=== PATIENT | female | born 1955 | race Caucasian/White ===

== ENCOUNTER → 2016-06-10 | Outpatient (CLI) | payer OTHER ==
[2016-06-10 16:18] LABS: MEAN CORPUSCULAR HGB CONC 33.9 g/dl (32.0-36.5); MEAN CORPUSCULAR VOLUME 100.3 fl (80.0-96.0); RED CELL DISTRIBUTION WIDTH 12.7 % (11.5-14.5); WHITE BLOOD COUNT 8.4 K/mm3 (4.0-10.0)
[2016-06-10 16:54] LABS: ALBUMIN 3.9 GM/DL (3.2-5.2); ALBUMIN/GLOBULIN RATIO 1.34 (1.00-1.93); BILIRUBIN,TOTAL 0.5 MG/DL (0.2-1.0); CALCIUM LEVEL 9.1 MG/DL (8.8-10.2); CREATININE FOR GFR 1.06 MG/DL (0.55-1.02); GLOMERULAR FILTRATION RATE 56.1 (>45); POTASSIUM SERUM 4.3 MEQ/L (3.5-5.1); TOTAL PROTEIN 6.8 GM/DL (6.4-8.2)
== END ==
LOC: M LAB 14:41
PROVIDERS: ATTEND Nurse Practitioner Family
DX: E78.5 Hyperlipidemia, unspecified (principal)

== ENCOUNTER → 2016-11-17 | Outpatient (CLI) | payer MEDICAID ==
[2016-11-17 10:18] LABS: MEAN CORPUSCULAR HEMOGLOBIN 32.9 pg (27.0-33.0); MEAN CORPUSCULAR HGB CONC 34.1 g/dl (32.0-36.5); MEAN CORPUSCULAR VOLUME 96.3 fl (80.0-96.0); RED CELL DISTRIBUTION WIDTH 12.7 % (11.5-14.5); WHITE BLOOD COUNT 6.4 K/mm3 (4.0-10.0)
[2016-11-17 10:49] LABS: ALBUMIN 3.9 GM/DL (3.2-5.2); ALBUMIN/GLOBULIN RATIO 1.34 (1.00-1.93); BILIRUBIN,TOTAL 0.7 MG/DL (0.2-1.0); FREE T4 1.24 NG/DL (0.76-1.46); GLOMERULAR FILTRATION RATE 59.8 (>45); TOTAL PROTEIN 6.8 GM/DL (6.4-8.2)
[2016-11-17 11:00] LABS: FOLATE 8.1 NG/ML (>5.4)
== END ==
LOC: M LAB 09:28
PROVIDERS: ATTEND Nurse Practitioner Family
DX: I10 Essential (primary) hypertension (principal)

== ENCOUNTER → 2017-07-01 | Outpatient (CLI) | payer OTHER ==
[2017-07-01 14:12] LABS: ESTIMATED AVERAGE GLUCOSE 105 MG/DL (60-110); HEMOGLOBIN A1c 5.3 %
[2017-07-01 14:19] LABS: ANION GAP 5 MEQ/L (8-16); BLOOD UREA NITROGEN 23 MG/DL (7-18); CALCIUM LEVEL 9.4 MG/DL (8.8-10.2); CARBON DIOXIDE LEVEL 29 MEQ/L (21-32); CHLORIDE LEVEL 108 MEQ/L (98-107); CHOLESTEROL LEVEL 164 MG/DL (<200); CHOLESTEROL RISK RATIO 2.447 (<5); CREATININE FOR GFR 1.08 MG/DL (0.55-1.30); GLOMERULAR FILTRATION RATE 54.7 (>45); GLUCOSE, FASTING 78 MG/DL (70-100); HDL CHOLESTEROL 67 MG/DL (>40); NON-HDL-C 97 MG/DL; POTASSIUM SERUM 5.1 MEQ/L (3.5-5.1); SODIUM LEVEL 142 MEQ/L (136-145); TRIGLYCERIDES LEVEL 60 MG/DL (<150)
[2017-07-01 14:27] LABS: MALB URINE SIEMENS 13.5 MG/L; MAU/CREAT RATIO 10.6 MCG/MG (0.0-30.0)
== END ==
LOC: M LAB 13:20
DX: Z13.1 Encounter for screening for diabetes mellitus (principal); I10 Essential (primary) hypertension
CPT/HCPCS: 83036

== ENCOUNTER 2017-07-27 12:03 | Day surgery (SDC) | payer OTHER ==
[2017-07-27] MEDS: NS 1,000 ML IV (13:41)
[2017-07-27] MEDS ORDERED: PROPOFOL 200 MG/20 ML VIAL As Ordered (14:45)
[2017-07-27] MEDS ORDERED: LIDOCAINE 2% INJ 100 MG/5 ML SDV (FOR ANES.) As Ordered (14:45)
== END 2017-07-27 14:55 | disposition home or self-care (01) ==
LOC: M OPP 12:03
DX: Z12.11 Encounter for screening for malignant neoplasm of colon (principal); K64.0 First degree hemorrhoids; D12.2 Benign neoplasm of ascending colon; K57.30 Diverticulosis of large intestine without perforation or abscess without bleeding; I10 Essential (primary) hypertension; E78.00 Pure hypercholesterolemia, unspecified; J44.9 Chronic obstructive pulmonary disease, unspecified; F41.9 Anxiety disorder, unspecified; F32.9 Major depressive disorder, single episode, unspecified; Z79.82 Long term (current) use of aspirin; Z79.899 Other long term (current) drug therapy; Z87.891 Personal history of nicotine dependence; Z78.0 Asymptomatic menopausal state; Z88.0 Allergy status to penicillin; Z88.8 Allergy status to other drugs, medicaments and biological substances
CPT/HCPCS: 45380

== ENCOUNTER 2017-07-31 01:43 | Emergency (ER) | payer OTHER ==
[2017-07-31 02:34] LABS: BASO % 0.2 % (0.0-1.0); EOS # 0.1 10^3/uL (0.0-0.50); EOS % 0.5 % (0.0-3.0); HEMATOCRIT 40.8 % (36.0-47.0); HEMOGLOBIN 13.7 g/dl (12.0-15.5); IMMATURE GRANULOCYTE % 0.4 % (0-3.0); LYMPH # 1.4 10^3/uL (1.5-4.5); LYMPH % 8.1 % (24.0-44.0); MEAN CORPUSCULAR HEMOGLOBIN 32.3 pg (27.0-33.0); MEAN CORPUSCULAR HGB CONC 33.6 g/dl (32.0-36.5); MEAN CORPUSCULAR VOLUME 96.2 fl (80.0-96.0); MONO # 0.7 10^3/uL (0.0-0.8); MONO % 4.2 % (0.0-5.0); NEUTROPHILS # 14.7 10^3/uL (1.8-7.7); NEUTROPHILS % 86.6 % (36.0-66.0); PLATELET COUNT, AUTOMATED 185 10^3/uL (150-450); RED BLOOD COUNT 4.24 10^6/uL (4.00-5.40); RED CELL DISTRIBUTION WIDTH 12.9 % (11.5-14.5)
[2017-07-31 02:44] LABS: INR 0.98; PROTHROMBIN TIME 13.1 SECONDS (12.4-14.5)
[2017-07-31 02:45] LABS: PARTIAL THROMBOPLASTIN TIME 28.8 SECONDS (26.8-37.9)
[2017-07-31 02:57] LABS: ANION GAP 6 MEQ/L (8-16); BLOOD UREA NITROGEN 21 MG/DL (7-18); CALCIUM LEVEL 8.3 MG/DL (8.8-10.2); CARBON DIOXIDE LEVEL 26 MEQ/L (21-32); CHLORIDE LEVEL 112 MEQ/L (98-107); CPK CREATINE PHOSPHOKINASE 38 U/L (26-192); CREATININE FOR GFR 0.89 MG/DL (0.55-1.30); GLOMERULAR FILTRATION RATE > 60.0 (>45); GLUCOSE, FASTING 102 MG/DL (70-100); POTASSIUM SERUM 3.8 MEQ/L (3.5-5.1); SODIUM LEVEL 144 MEQ/L (136-145); TROPONIN I < 0.02 NG/ML (< 0.10)
[2017-07-31 02:58] LABS: CK-MB VALUE MASS < 1.0 NG/ML (<3.6); MB/CK RELATIVE INDEX 2.63 (< OR =4)
[2017-07-31] MEDS ORDERED: ISOVUE-370 76% 100ML VIAL (Q9967) As Ordered (03:03)
[2017-07-31 03:15] LABS: ALBUMIN 3.5 GM/DL (3.2-5.2); ALBUMIN/GLOBULIN RATIO 1.25 (1.00-1.93); ALKALINE PHOSPHATASE 74 U/L (45-117); ALT/SGPT 26 U/L (12-78); AST/SGOT 29 U/L (7-37); BILIRUBIN,DIRECT 0.1 MG/DL (0.0-0.2); BILIRUBIN,TOTAL 0.4 MG/DL (0.2-1.0); LIPASE 134 U/L (73-393); TOTAL PROTEIN 6.3 GM/DL (6.4-8.2)
[2017-07-31] MEDS: NS 1,000 ML IV (03:45)
[2017-07-31] MEDS: MORPHINE 4 MG/ML 1ML VIAL/SYRINGE (J2270) IV (03:45)
[2017-07-31 03:54] LABS: APPEARANCE, URINE CLEAR (CLEAR); BACTERIA, URINE AUTO NEGATIVE (NEGATIVE); BILIRUBIN, URINE AUTO NEGATIVE (NEGATIVE); BLOOD, URINE BLOOD 1+ (NEGATIVE); COLOR, URINE YELLOW (YELLOW); GLUCOSE, URINE (UA) AUTO NEGATIVE (NEGATIVE); KETONE, URINE AUTO NEGATIVE (NEGATIVE); LEUKOCYTE ESTERASE, URINE AUTO NEGATIVE (NEGATIVE); NITRITE, URINE AUTO NEGATIVE (NEGATIVE); PROTEIN, URINE AUTO NEGATIVE (NEGATIVE); RBC, URINE AUTO 4 /HPF (0-3); SPECIFIC GRAVITY URINE AUTO 1.017 (1.002-1.035); SQUAMOUS EPITHELIAL CELL UR AU 1 /HPF (0-6); UROBILINOGEN, URINE AUTO 0.2 mg/dL (0.0-2.0); WBC, URINE AUTO 2 /HPF (0-3)
[2017-07-31] MEDS: BACTRIM 160MG/800MG DS TAB PO (04:54)
[2017-07-31] MEDS: metroNIDAZOLE 750 MG in APPROPRIATE DILUENT 1 EA IV (05:27)
== END 2017-07-31 06:33 | disposition home or self-care (01) ==
LOC: M ED 01:43
DX: K57.92 Diverticulitis of intestine, part unspecified, without perforation or abscess without bleeding (principal); I10 Essential (primary) hypertension; E78.5 Hyperlipidemia, unspecified; F33.9 Major depressive disorder, recurrent, unspecified; Z79.51 Long term (current) use of inhaled steroids; Z79.899 Other long term (current) drug therapy; Z79.82 Long term (current) use of aspirin; Z88.0 Allergy status to penicillin; Z88.8 Allergy status to other drugs, medicaments and biological substances; Z88.5 Allergy status to narcotic agent; Z88.1 Allergy status to other antibiotic agents
CPT/HCPCS: J2270

== ENCOUNTER → 2018-01-26 | Outpatient (CLI) | payer OTHER | LOC: M WHC 12:46 | DX: Z82.62 Family history of osteoporosis (principal); M85.9 Disorder of bone density and structure, unspecified | CPT/HCPCS: 77080 ==

== ENCOUNTER → 2018-03-12 | Outpatient (CLI) | payer OTHER | LOC: M RAD 10:04 | DX: Z12.2 Encounter for screening for malignant neoplasm of respiratory organs (principal); Z87.891 Personal history of nicotine dependence; J44.9 Chronic obstructive pulmonary disease, unspecified | CPT/HCPCS: G0297 ==

== ENCOUNTER → 2019-04-19 | Outpatient (CLI) | payer OTHER ==
[~2019-04-19] MED LIST: ARNU1INH3 IN; ASPI81TA26 PO; ATOR1TAB21 PO; BACT800T5 PO; BENI1TAB3 PO; CALC500T61 PO; CARV6.25 PO; CETI10TA PO; ESCI20TA PO; FLAG500T PO; INCR1INH IN; RANI300T PO; TRAM50TA2 PO; VITA100018 PO
== END ==
LOC: M RAD 13:06
PROVIDERS: ATTEND Internal Medicine Pulmonary Disease
DX: Z12.2 Encounter for screening for malignant neoplasm of respiratory organs (principal); Z87.891 Personal history of nicotine dependence

== ENCOUNTER → 2019-07-28 | Outpatient (REF) | payer OTHER | LOC: M LAB REF 16:29 | PROVIDERS: ATTEND Ophthalmology | DX: H02.403 Unspecified ptosis of bilateral eyelids (principal) ==

== ENCOUNTER → 2019-10-27 | Outpatient (REF) | payer MEDICARE, OTHER ==
[2019-10-27 12:13] LABS: ALBUMIN 3.8 GM/DL (3.2-5.2); ALT/SGPT 27 U/L (12-78); BILIRUBIN,TOTAL 0.6 MG/DL (0.2-1.0); BLOOD UREA NITROGEN 16 MG/DL (7-18); CALCIUM LEVEL 8.9 MG/DL (8.8-10.2); CARBON DIOXIDE LEVEL 28 MEQ/L (21-32); CHLORIDE LEVEL 107 MEQ/L (98-107); CHOLESTEROL LEVEL 197 MG/DL (<200); CHOLESTEROL RISK RATIO 2.662 (<5); CREATININE FOR GFR 0.78 MG/DL (0.55-1.30); GLOMERULAR FILTRATION RATE > 60.0 (>45); GLUCOSE, FASTING 77 MG/DL (70-100); HDL CHOLESTEROL 74 MG/DL (>40); LDL CHOLESTEROL 107 MG/DL (<100); NON-HDL-C 123 MG/DL; POTASSIUM SERUM 4.6 MEQ/L (3.5-5.1); SODIUM LEVEL 140 MEQ/L (136-145); TOTAL PROTEIN 7.1 GM/DL (6.4-8.2); TRIGLYCERIDES LEVEL 80 MG/DL (<150)
== END ==
LOC: M PLALAB 10:00
PROVIDERS: ATTEND Family Medicine
DX: M81.0 Age-related osteoporosis without current pathological fracture (principal); E78.2 Mixed hyperlipidemia; E55.9 Vitamin D deficiency, unspecified
CPT/HCPCS: 36415; 80053; 80061; 82306; G0463

== ENCOUNTER 2020-03-08 14:42 | Inpatient (IN) | payer MEDICARE, OTHER ==
[~2020-03-08] VITALS: Ht 154.9 cm; Wt 44.9 kg
[~2020-03-08 14:42] MED LIST changes: -ARNU1INH3 IN; +ARNU1INH3 INH; -INCR1INH IN; +INCR1INH INH
[2020-03-08] MEDS ORDERED: MORPHINE 2 MG/ML 1ML VIAL (J2270) IV PRN (15:15)
[2020-03-08] MEDS ORDERED: MORPHINE 4 MG/ML 1ML VIAL/SYRINGE (J2270) As Ordered ONE (15:17)
[2020-03-08] MEDS ORDERED: ONDANSETRON 4MG/2ML VIAL As Ordered ONE (15:17)
[2020-03-08 15:19] LABS: BASO # 0.1 10^3/uL (0.0-0.2); BASO % 0.7 % (0.0-1.0); EOS # 0.2 10^3/uL (0.0-0.5); EOS % 1.4 % (0.0-3.0); HEMATOCRIT 47.1 % (36.0-47.0); HEMOGLOBIN 15.3 g/dl (12.0-15.5); LYMPH # 2.1 10^3/uL (1.5-5.0); LYMPH % 16.9 % (24.0-44.0); MEAN CORPUSCULAR HEMOGLOBIN 31.5 pg (27.0-33.0); MEAN CORPUSCULAR HGB CONC 32.5 g/dl (32.0-36.5); MEAN CORPUSCULAR VOLUME 97.1 fl (80.0-96.0); MONO # 1.1 10^3/uL (0.0-0.8); MONO % 8.8 % (0.0-5.0); NEUTROPHILS # 8.9 10^3/uL (1.5-8.5); NEUTROPHILS % 71.8 % (36.0-66.0); PLATELET COUNT, AUTOMATED 230 10^3/uL (150-450); RED BLOOD COUNT 4.85 10^6/uL (4.00-5.40); WHITE BLOOD COUNT 12.5 10^3/uL (4.0-10.0)
--- NOTE | 2020-03-08 15:26 | REP ---
INDICATION: abd pain COMPARISON: 03/29/2016 TECHNIQUE: Portable AP view of the chest FINDINGS: The mediastinum and cardiac silhouette are stable and within normal limits for portable technique. The lung hurt demonstrate chronic COPD without acute consolidation, effusion, or pneumothorax. Skeletal structures are intact. IMPRESSION: No acute cardiopulmonary process appreciated. Chronic COPD. <Electronically signed by Julio Arreola > 03/08/20 [id number]
[2020-03-08] MEDS ORDERED: MORPHINE 4 MG/ML 1ML VIAL/SYRINGE (J2270) IV PRN ×3 (15:30→16:00)
[2020-03-08] MEDS ORDERED: NS 1,000 ML IV SCH (15:30)
[2020-03-08] MEDS ORDERED: ISOVUE-370 76% 100ML VIAL As Ordered ONE (15:39)
[2020-03-08 15:47] LABS: ALBUMIN 3.7 GM/DL (3.2-5.2); BILIRUBIN,DIRECT 0.2 MG/DL (0.0-0.2); BILIRUBIN,TOTAL 1.1 MG/DL (0.2-1.0)
--- NOTE | 2020-03-08 16:05 | REP ---
INDICATION: abd pain. COMPARISON: 07/31/2017 TECHNIQUE: Axial contrast-enhanced images from the lung bases to the pubic symphysis using 100 cc Isovue 370 intravenous contrast material. Coronal and sagittal reformations obtained. This CT examination was performed using the following dose reduction techniques: Automated exposure control, adjustment of mA and/or kv according to the patient's size, and the use of iterative reconstruction technique. FINDINGS: Liver demonstrates geographic areas of decreased density along the inferior aspect of the right lobe with normal vessels and no mass effect most compatible with benign transient hepatic attenuation defect (NOLAN). Liver is otherwise unremarkable. Spleen, pancreas, gallbladder, bilateral adrenal glands and kidneys are normal. The enteric system demonstrates mild fecal stasis without obstruction. Scattered colonic and sigmoid diverticula noted. There is mild mucosal thickening involving the proximal through mid sigmoid colon suspicious for infectious/inflammatory colitis. Pelvis demonstrates normal bladder and age-appropriate uterus/adnexa. No ascites. No free air. No intraperitoneal or retroperitoneal adenopathy. Abdominal aorta and vasculature demonstrate atherosclerotic changes without aneurysm or dissection. Musculoskeletal structures are intact and without acute osseous abnormality. Lung bases demonstrate early advanced emphysematous disease. IMPRESSION: 1. Findings suspicious for sigmoid colitis. 2. Further nonacute findings as described above. <Electronically signed by Julio Arreola > 03/08/20 [id number]
--- NOTE | 2020-03-08 16:20 | ECGEPIP ---
[facility] - ED Test Date: 2020-03-08 Pat Name: ANDREW DUMONT Department: Room: - Gender: Female [employer]: DELORES : 1955 Requested By: DEANA SPRINGER Order Number: [id number] Reading MD: Sharon Tapia Measurements Intervals [place] Rate: 107 P: 81 [place]: 128 QRS: 71 QRSD: 72 T: 67 QT: 334 QTc: 446 Interpretive Statements SINUS TACHYCARDIA POSSIBLE RIGHT ATRIAL ENLARGEMENT POSSIBLE LEFT ATRIAL ENLARGEMENT ST DEPRESSION, CONSIDER SUBENDOCARDIAL INJURY, CLINICAL CORRELATION Electronically Signed on 03-08-2020 16:19:42 EST by Sharon Tapia
[2020-03-08] MEDS ORDERED: LORA-436 PO (16:33)
[2020-03-08] MEDS ORDERED: MONT10TA4 PO (16:33)
[2020-03-08] MEDS ORDERED: ATOR40TA75 PO (16:33)
[2020-03-08] MEDS ORDERED: CALC600T61 PO (16:33)
[2020-03-08] MEDS ORDERED: VITMTA PO (16:33)
[2020-03-08] MEDS ORDERED: LOSA50TA88 PO (16:33)
[2020-03-08] MEDS: ONDANSETRON 4MG/2ML VIAL IV PRN (16:47)
[2020-03-08 16:50] LABS: VENOUS BASE EXCESS -2.4 (-2.0-2.0); VENOUS HCO3 24.1 MEQ/L (23.0-27.0); VENOUS O2 SATURATION 61.8 % (60.0-80.0); VENOUS PARTIAL PRESSURE O2 32.9 mmHg (30.0-50.0); VENOUS PH 7.319 UNITS (7.330-7.430); VENOUS STANDARD HCO3 21.6 MEQ/L; VENOUS TOTAL CO2 25.6 MEQ/L (24.0-28.0)
[2020-03-08] MEDS ORDERED: HEPARIN SOD (PORCINE) 5000UNITS/ML 1ML VIAL/SYRINGE SC SCH (17:30)
[2020-03-08] MEDS ORDERED: MOM 30ML SUSPENSION UDC PO PRN (17:30)
[2020-03-08 17:44] LABS: C REACTIVE PROTEIN QUANTITATIV 0.61 MG/DL (0.00-0.30)
[2020-03-08] MEDS ORDERED: DICYCLOMINE 10 MG CAP PO PRN (17:45)
[2020-03-08 17:54] LABS: ERYTHROCYTE SEDIMENTATION RATE 15 mm/hr (0-30)
--- NOTE | 2020-03-08 17:56 | HPEPDOC ---
[facility] Medical History & Physical Date of Admission Mar 08, 2020 Date of Service: Mar 08, 2020 History and Physical Chief complaint: Presented to the ER with complaints of abdominal pain History of present illness: Patient is a 64 year old female with a PMHx of HTN, DLP, COPD (2/2 Former Smoker), Depression, Osteoporosis, Vitamin D deficiency, Hx of Diverticulitis who presented to the emergency room with complaints of abdominal pain. Patient reported that on Thursday morning, she was expressing abdominal pain, reported as a 10/10, occurring for an hour duration, then spontaneously resolving. Patient reported that her Thursday was uneventful. This morning patient had reported nausea and attempted to vomit then began experiencing epigastric pain, reported as a 10 out of 10 pressure/ache. He-like intensity, non-radiating without any aggravating factors. Patient reported that the only thing that has helped his pain medications in the ER. Patient denies any diarrhea or constipation. Her last bowel movement was yesterday. She reported the stool was hard denied any mucus or blood. Denies any urinary discomfort. Patient has not experience any recent fevers, chills. Patient denies any chest pain, shortness of breath or cough. Her last colonoscopy was about [address] Romo and she has never received an EGD. Patient reports that prior to all this, her appetite was fairly normal and denies any significant changes in her weight. Past Medical History: HTN, DLP, COPD (2/2 Former Smoker), Depression, Osteoporosis, Vitamin D deficiency, Hx of Diverticulitis Past Surgical History: Umbilical hernia repair as a child Tubal ligation 1989 Lumbar spinal fusion [address] Romo /2017 Allergies: See below Medications: See below Family History: - Mother with history of multiple medical conditions and now lives in a retirement - Father with history of prostate and lung cancer Social History: - Denies the use of alcohol or illicit drugs; patient quit smoking approximately 7 years ago but was a smoker of 30 years at one PPD - Denies recent travel or sick contacts - Lives alone - Occupation; retired from [employer] Review of Systems: 10 point review of systems complete, all negative otherwise stated in HPI Physical exam: - Vitals: BP [166/74], HR [90], RR [20], Sat [97%RA], Temp [97.7F] - General: Lying in bed, Speaking in full sentences, AAOx3 - HEENT: NC, AT, PERRLA - CVS: RRR, +S1S2 - Lungs: Fair air entry bilaterally, No appreciable wheezing / rales / rhonchi - Abdomen: Soft, Non-distended, tenderness is appreciated at the epigastrium only. No tenderness any other four-quadrant - Extremities: No lower extremity edema, No calf tenderness - Neuro: No focal motor or sensory deficit - Skin: No visible rashes Labs: See below Imaging: CXR 03/08: No acute cardiopulmonary process appreciated. Chronic COPD. CT abdomen / pelvis 03/08: 1. Findings suspicious for sigmoid colitis. 2. Further nonacute findings as described above. EKG: See below Assessment and Plan: Abdominal pain / Epigastric pain - likely 2/2 gastritis, possibly 2/2 biliary etiology, unlikely 2/2 sigmoid colitis - Currently patient is reporting pain in the upper portion of her abdomen - She is reported using ibuprofen regularly for her sinus headaches - Physical reveals severe epigastric tenderness only; no LLQ tenderness is noted at all on exam - Mild leukocytosis; no lactic acidosis - Imaging noted above - Will check H. pylori antigen / serology - Will trend liver enzymes - Will check RUQ ultrasound - Will provide GI cocktail / dicyclomine - Clear liquid diet for now; NPO post-midnight - Will start Protonix / Carafate - Patient has been advised remain off NSASIDs - Consulted GI; discussed case with Dr. Jason; will likely perform EGD tomorrow HTN - BP elevated in the ER; possibly 2/2 pain - c/w Carvedilol and Losartan with holding parameters DLP - c/w Atorvastatin Chronic COPD - Patient reports she is a former smoker - No evidence of exacerbation - Continue with inhaled therapy as ordered Depression - c/w Escitalopram Seasonal allergies - c/w Loratadine Osteoporosis / Vitamin D deficiency - c/w Calcium carbonate Hx of Diverticulitis - Occurred 5 years ago DVT prophylaxis - Will start NOELLE/Sequentials Vital Signs Vital Signs Date Time Temp Pulse Resp B/P (MAP) Pulse Ox O2 Delivery O2 Flow Rate FiO2 03/08/20 16:48 20 99 Room Air 03/08/20 15:33 03/08/20 15:27 90 Laboratory Data Labs 24H Laboratory Tests 2 03/08/20 15:08: Immature Granulocyte % (Auto) 0.4, Neutrophils (%) (Auto) 71.8H, Lymphocytes (%) (Auto) 16.9L, Monocytes (%) (Auto) 8.8H, Eosinophils (%) (Auto) 1.4, Basophils (%) (Auto) 0.7, Neutrophils # (Auto) 8.9H, Lymphocytes # (Auto) 2.1, Monocytes # (Auto) 1.1H, Eosinophils # (Auto) 0.2, Basophils # (Auto) 0.1, Nucleated Red Blood Cells % (auto) 0.0, Erythrocyte Sedimentation Rate 15, Lactic Acid Level 1.7, Total Bilirubin 1.1H, Direct Bilirubin 0.2, Aspartate Amino Transf (AST/SGOT) 37, Alanine Aminotransferase (ALT/SGPT) 34, Alkaline Phosphatase 86, C-Reactive Protein, Quantitative 0.61H, Total Protein 7.0, Albumin 3.7, Albumin/Globulin Ratio 1.1L, Lipase 90 03/08/20 15:09: POC Glucose (Misc Panel) 79, POC Sodium (Misc Panel) 141, POC Potassium (Misc Panel) 3.6, POC Chloride (Misc Panel) 105, POC Total CO2 (Misc Panel) 23.0, POC Blood Urea Nitrogen (Misc Panel 15, POC Ionized Calcium (Misc Panel) 4.7, POC Creatinine (Misc Panel) 0.6, POC Hematocrit (Misc Panel) 48.0 03/08/20 15:12: POC Troponin I (Misc) 0.01 03/08/20 15:24: POC Glucose (Misc Panel) 75, POC Sodium (Misc Panel) 141, POC Potassium (Misc Panel) 3.5, POC Chloride (Misc Panel) 104, POC Total CO2 (Misc Panel) 23.0, POC Blood Urea Nitrogen (Misc Panel 15, POC Ionized Calcium (Misc Panel) 4.7, POC Creatinine (Misc Panel) 0.6, POC Hematocrit (Misc Panel) 51.0 03/08/20 16:37: Urine Color STRAW, Urine Appearance CLEAR, Urine pH 6.0, Urine Specific [place] >1.060H, Urine Protein NEGATIVE, Urine Glucose (UA) NEGATIVE, Urine Ketones 2+H, Urine Blood NEGATIVE, Urine Nitrite NEGATIVE, Urine Bilirubin NEGATIVE, Urine Urobilinogen 0.2, Urine Leukocyte Esterase NEGATIVE, Urine WBC (Auto) 1, Urine RBC (Auto) 1, Urine Hyaline Casts (Auto) 0, Urine Bacteria (Auto) NEGATIVE, Urine Squamous Epithelial Cells 5, Urine Mucus (Auto) SMALL, Urine Sperm (Auto) , Blood Gas Bicarbonate Standard 21.6, Venous Blood pH 7.319L, Venous Blood Partial Pressure CO2 48.0, Venous Blood Partial Pressure O2 32.9, Venous Blood Total Carbon Dioxide 25.6, Venous Blood HCO3 24.1, Venous Blood Oxygen Saturation 61.8, Venous Blood Base Excess -2.4L, Coronavirus (COVID-19)(PCR) NEGATIVE CBC/BMP Laboratory Tests 03/08/20 15:08 Home Medications Scheduled Atorvastatin Calcium (Atorvastatin Calcium) 40 Mg Tablet, 40 MG PO QHS Calcium Carbonate (Calcium) 600 Mg Tablet, 600 MG PO DAILY Carvedilol (Carvedilol) 6.25 Mg Tab, 6.25 MG PO BID Escitalopram Oxalate (Escitalopram Oxalate) 20 Mg Tab, 20 MG PO DAILY Fluticasone Furoate (Arnuity Ellipta) 200 Mcg/Act Inh, 200 MCG INH DAILY Loratadine (Loratadine) 10 Mg Tablet, 10 MG PO DAILY Losartan Potassium (Losartan Potassium) 50 Mg Tablet, 50 MG PO DAILY Montelukast Sodium (Montelukast Sodium) 10 Mg Tablet, 10 MG PO DAILY Multivitamins (Thera M Plus Tablet) 1 Each Tablet, 1 TAB PO DAILY Umeclidinium [place] (Incruse Ellipta) 62.5 Mcg/Inh Inh, 62.5 MCG INH DAILY Allergies Coded Allergies: amoxicillin (Verified Allergy, Intermediate, hives, 03/08/20) ciprofloxacin (Verified Allergy, Intermediate, hives, 03/08/20) clavulanic acid (Verified Allergy, Intermediate, hives, 03/08/20) doxycycline (Verified Allergy, Intermediate, migraine, 03/08/20) pravastatin (Verified Allergy, Unknown, 03/08/20) oxycodone (Verified Adverse Reaction, Mild, MIGRAINE, 03/08/20) bupropion (Verified Adverse Reaction, Unknown, high anxiety, 03/08/20) HEMAL WHITESIDE MD Mar 08, 2020 17:56
[2020-03-08] MEDS ORDERED: GI COCKTAIL 50ML BTL(HYOSCYAMINE/MAALOX/LIDOCAINE VISCOUS)(1:3:1) PO ONE (18:00)
[2020-03-08] MEDS ORDERED: CALCIUM CARBONATE 500 MG CHEW U/D PO PRN (18:00)
[2020-03-08] MEDS: SUCRALFATE 1 GM TAB PO SCH ×2 (19:10→21:15)
[2020-03-08 19:48] VITALS: BP 114/95
[2020-03-08] MEDS ORDERED: ADVAIR HFA 230/21MCG INHALER INH SCH (21:00)
[2020-03-08] MEDS: ATORVASTATIN 20 MG TAB PO SCH (21:15)
[2020-03-08] MEDS: CARVedilol 6.25 MG TAB PO SCH (21:15)
[2020-03-08] MEDS: DOCUSATE SODIUM 100 MG CAP PO SCH (21:15)
[2020-03-08] MEDS: PANTOPRAZOLE 40MG VIAL (C9113 PER 1) IV SCH (21:16)
[2020-03-08] MEDS: LOSARTAN 50MG TABLET PO SCH (21:17)
[2020-03-08] MEDS: ACETAMINOPHEN TAB 650MG DOSE (2X325MG) PO PRN (21:30)
[2020-03-09] MEDS: ONDANSETRON 4MG/2ML VIAL IV PRN ×2 (03:03→08:10)
[2020-03-09 06:03] LABS: BASO # 0.1 10^3/uL (0.0-0.2); EOS # 0.2 10^3/uL (0.0-0.5); EOS % 2.4 % (0.0-3.0); HEMATOCRIT 44.3 % (36.0-47.0); HEMOGLOBIN 14.4 g/dl (12.0-15.5); LYMPH # 1.6 10^3/uL (1.5-5.0); LYMPH % 17.8 % (24.0-44.0); MEAN CORPUSCULAR HEMOGLOBIN 32.3 pg (27.0-33.0); MEAN CORPUSCULAR HGB CONC 32.5 g/dl (32.0-36.5); MEAN CORPUSCULAR VOLUME 99.3 fl (80.0-96.0); MONO # 0.9 10^3/uL (0.0-0.8); MONO % 9.3 % (0.0-5.0); NEUTROPHILS # 6.4 10^3/uL (1.5-8.5); NEUTROPHILS % 69.2 % (36.0-66.0); PLATELET COUNT, AUTOMATED 191 10^3/uL (150-450); RED BLOOD COUNT 4.46 10^6/uL (4.00-5.40); WHITE BLOOD COUNT 9.2 10^3/uL (4.0-10.0)
[2020-03-09 06:28] LABS: ALBUMIN 3.3 GM/DL (3.2-5.2); ALT/SGPT 28 U/L (12-78); BILIRUBIN,DIRECT 0.3 MG/DL (0.0-0.2); BILIRUBIN,TOTAL 0.9 MG/DL (0.2-1.0); BLOOD UREA NITROGEN 14 MG/DL (7-18); CALCIUM LEVEL 8.8 MG/DL (8.8-10.2); CARBON DIOXIDE LEVEL 26 MEQ/L (21-32); CHLORIDE LEVEL 109 MEQ/L (98-107); CREATININE FOR GFR 0.68 MG/DL (0.55-1.30); GLOMERULAR FILTRATION RATE > 60.0 (>45); GLUCOSE, FASTING 77 MG/DL (70-100); MAGNESIUM LEVEL 2.1 MG/DL (1.8-2.4); POTASSIUM SERUM 4.1 MEQ/L (3.5-5.1); SODIUM LEVEL 141 MEQ/L (136-145); TOTAL PROTEIN 6.3 GM/DL (6.4-8.2)
[2020-03-09] MEDS ORDERED: MORPHINE 2 MG/ML 1ML VIAL (J2270) IV ONE ×2 (06:30→13:30)
[2020-03-09 06:32] VITALS: BP 134/67
--- NOTE | 2020-03-09 06:46 | REPVR ---
PROCEDURE INFORMATION: Exam: US Abdomen, Limited; Right Upper Quadrant Exam date and time: 03/08/2020 6:11 AM Age: 64 years old Clinical indication: Abdominal pain; Epigastric; Additional info: Ruq TECHNIQUE: Imaging protocol: US abdomen. Real time ultrasound with image documentation. Limited exam focused on the right upper quadrant. COMPARISON: CT ABD/PEL W/IV CONTRAST ONLY 03/08/2020 3:38 PM FINDINGS: Liver: Normal. No masses. Gallbladder: Normal. No gallstones. There is no gallbladder wall thickening. No sonographic Noe sign. Common bile duct: Normal measuring 0.4 cm. No stones. No dilation. Pancreas: Visualized pancreas is unremarkable. Right kidney: Right kidney is unremarkable measuring 8.9 x 4.6 x 4.5 cm. Intraperitoneal space: No free fluid. IMPRESSION: Negative exam. Electronically signed by: Luna Hays On 03/09/2020 06:46:20 AM
[2020-03-09] MEDS: TIOTROPIUM INHALER/CAPSULE (SPIRIVA) INH SCH (07:17)
[2020-03-09] MEDS: SUCRALFATE 1 GM TAB PO SCH ×2 (07:30→12:00)
[2020-03-09 07:38] LABS: H PYLORI QUALITATIVE IgG NEGATIVE (NEGATIVE)
[2020-03-09] MEDS: PANTOPRAZOLE 40MG VIAL (C9113 PER 1) IV SCH (08:10)
[2020-03-09] MEDS ORDERED: MULTIVITAMINS/MINERALS THERAP 1 TAB PO SCH (09:00)
[2020-03-09] MEDS: CARVedilol 6.25 MG TAB PO SCH ×2 (09:00→20:06)
[2020-03-09] MEDS: DOCUSATE SODIUM 100 MG CAP PO SCH ×2 (09:00→20:05)
--- NOTE | 2020-03-09 09:43 | IPNPDOC ---
Text Note Date of Service The patient was seen on 03/09/20. NOTE Subjective: Patient seen and examined at bedside. Still complains of nausea, vomiting - non- bloody, non-bilious. Objective: General: NAD, lying comfortably in bed HEENT: NC, AT, PERRLA CVS: RRR, +S1S2 Lungs: CTA B/L Abdomen: soft, ND, +BS, some mid-epigastric tenderness Ext: no edema Skin : no visible rashes A/P: 64F with PMHx of HTN, DLP, COPD (2/2 Former Smoker), Depression, Osteoporosis, Vitamin D deficiency, Hx of Diverticulitis who presented to the emergency room with complaints of abdominal pain - reported as a 10/10, occurring for an hour duration, then spontaneously resolving. Patient states she then developed nausea and attempted to vomit then began experiencing epigastric pain, reported as a 10 out of 10 pressure/ache. #Abdominal pain / Epigastric pain - likely 2/2 gastritis, possibly 2/2 biliary etiology, unlikely 2/2 sigmoid colitis - Currently patient is reporting pain in the upper portion of her abdomen - She is reported using ibuprofen regularly for her sinus headaches - leukocytosis resolved - Will check H. pylori antigen / serology - Will check RUQ ultrasound - Will provide GI cocktail / dicyclomine - repeat trops, ecg pending - NPO - Protonix / Carafate - Patient has been advised remain off NSAIDs - Consulted GI; discussed case with Dr. Jason; will likely perform EGD #HTN - BP elevated in the ER; possibly 2/2 pain - c/w Carvedilol and Losartan with holding parameters #DLP - c/w Atorvastatin #COPD - Patient reports she is a former smoker - No evidence of exacerbation - Continue with inhaled therapy as ordered #Depression - c/w Escitalopram #Seasonal allergies - c/w Loratadine #Osteoporosis / Vitamin D deficiency - c/w Calcium carbonate #Hx of Diverticulitis - Occurred 5 years ago #DVT prophylaxis - Will start NOELLE/Sequentials VS,Fishbone, I+O VS, Fishbone, I+O Laboratory Tests 03/08/20 15:08 03/09/20 05:44 Vital Signs Date Time Temp Pulse Resp B/P (MAP) Pulse Ox O2 Delivery O2 Flow Rate FiO2 03/09/20 06:56 16 Room Air 03/09/20 06:32 99.2 65 134/67 (52) 32 I&O- Last 24 Hours up to 6 AM 03/09/20 06:00 Intake Total 160 ml Output Total 100 ml Balance 60 ml YAAKOV YANEZ MD Mar 09, 2020 09:42
[2020-03-09] MEDS ORDERED: LIDOCAINE 2% 100MG/5ML SDV (FOR ANES.) As Ordered ONE (10:03)
[2020-03-09] MEDS ORDERED: propofoL 200 MG/20 ML VIAL As Ordered ONE (10:03)
[2020-03-09 12:36] LABS: CK-MB VALUE MASS 2.7 NG/ML (<3.6); CPK CREATINE PHOSPHOKINASE 38 U/L (26-192); MB/CK RELATIVE INDEX 7.11 (< OR =4); TROPONIN I < 0.02 NG/ML (< 0.10)
[2020-03-09] MEDS ORDERED: MORPHINE 2 MG/ML 1ML VIAL (J2270) As Ordered ONE (13:03)
--- NOTE | 2020-03-09 15:40 | ROOR ---
Patient Name: Trupti Washington Procedure Date: 03/09/2020 3:12 PM Date of : 1955 Age: 64 Room: Main OR Gender: Female Note Status: Finalized Procedure: Upper GI endoscopy Indications: Epigastric abdominal pain Providers: John JASON MD Referring MD: 2. Inpatient 2. Inpatient Requesting Provider: Medicines: Monitored Anesthesia Care Complications: No immediate complications. Procedure: Pre-Anesthesia Assessment: - The heart rate, respiratory rate, oxygen saturations, blood pressure, adequacy of pulmonary ventilation, and response to care were monitored throughout the procedure. The Endoscope was introduced through the mouth, and advanced to the second part of duodenum. The upper GI endoscopy was accomplished without difficulty. The patient tolerated the procedure well. Findings: A medium amount of food (residue) was found in the gastric body. Removal of food was accomplished. A widely patent Schatzki ring was found at the gastroesophageal junction. The entire examined stomach was normal. The examined duodenum was normal. Suspect gastroparesis due to patient symptoms and retained gastric contents. Impression: - Widely patent Schatzki ring, otherwise normal esophagus. - A medium amount of food (residue) in the stomach, otherwise normal stomach. - Normal examined duodenum. Recommendation: - Gastroparesis diet: - Eat smaller, more frequent meals throughout the day. - Low fat diet. - Liquid/soft foods are tolerated better than solid foods. - Low fiber/well cooked vegetables are tolerated better than high fiber/fibrous foods/raw vegetables. - Avoid medications that inhibit gastric/intestinal motility such as narcotic medications. - limit/avoid narcotic medications. - r/o hypothyroidism, r/o DM as cause for gastroparesis. - CT shows fecal stasis. rec laxative regimen. - Outpatient follow up with Dr Romo. Procedure Code(s): --- Professional --- 02657, Esophagogastroduodenoscopy, flexible, transoral; with removal of foreign body(s) Diagnosis Code(s): --- Professional --- T18.2XXA, Foreign body in stomach, initial encounter K22.2, Esophageal obstruction K31.84, Gastroparesis R10.13, Epigastric pain CPT copyright 2019 [employer]. All rights reserved. The codes documented in this report are preliminary and upon windows mobile developer review may be revised to meet current compliance requirements. John Jason MD John JASON MD 03/09/2020 3:40:29 PM Electronically signed by John JASON MD Number of Addenda: 0 Note Initiated On: 03/09/2020 3:12 PM Estimated Blood Loss: Estimated blood loss: none.
[2020-03-09] MEDS ORDERED: LR 1,000 ML IV SCH (16:00)
[2020-03-09] MEDS ORDERED: ONDANSETRON 4MG/2ML VIAL IV PRN (16:00)
[2020-03-09 16:27] VITALS: BP 134/75
[2020-03-09] MEDS: LORATADINE 10 MG TAB PO SCH (17:12)
[2020-03-09] MEDS: ESCITALOPRAM OXALATE 10 MG TAB (LEXAPRO) PO SCH (17:13)
[2020-03-09] MEDS: MONTELUKAST 10 MG TAB PO SCH (17:13)
[2020-03-09] MEDS: LOSARTAN 50MG TABLET PO SCH (17:13)
[2020-03-09] MEDS ORDERED: MOM 30ML SUSPENSION UDC PO ONE (17:45)
[2020-03-09] MEDS: ATORVASTATIN 20 MG TAB PO SCH (20:05)
[2020-03-09] MEDS: ACETAMINOPHEN TAB 650MG DOSE (2X325MG) PO PRN (20:05)
[2020-03-09 22:00] VITALS: BP 132/74
[2020-03-10] MEDS: ACETAMINOPHEN TAB 650MG DOSE (2X325MG) PO PRN (02:02)
[2020-03-10 06:00] VITALS: BP 122/56
[2020-03-10 06:27] LABS: BASO # 0.1 10^3/uL (0.0-0.2); BASO % 0.7 % (0.0-1.0); EOS # 0.3 10^3/uL (0.0-0.5); EOS % 2.9 % (0.0-3.0); HEMOGLOBIN 13.2 g/dl (12.0-15.5); LYMPH # 1.7 10^3/uL (1.5-5.0); LYMPH % 19.6 % (24.0-44.0); MEAN CORPUSCULAR HEMOGLOBIN 32.5 pg (27.0-33.0); MEAN CORPUSCULAR HGB CONC 32.2 g/dl (32.0-36.5); MONO # 0.8 10^3/uL (0.0-0.8); MONO % 9.2 % (0.0-5.0); NEUTROPHILS # 5.7 10^3/uL (1.5-8.5); NEUTROPHILS % 67.1 % (36.0-66.0); PLATELET COUNT, AUTOMATED 160 10^3/uL (150-450); RED BLOOD COUNT 4.06 10^6/uL (4.00-5.40); WHITE BLOOD COUNT 8.6 10^3/uL (4.0-10.0)
[2020-03-10 06:50] LABS: HEMOGLOBIN A1c 5.2 %
[2020-03-10 07:13] LABS: ALBUMIN 2.9 GM/DL (3.2-5.2); ALT/SGPT 23 U/L (12-78); BILIRUBIN,DIRECT 0.2 MG/DL (0.0-0.2); BILIRUBIN,TOTAL 0.8 MG/DL (0.2-1.0); BLOOD UREA NITROGEN 17 MG/DL (7-18); CALCIUM LEVEL 8.2 MG/DL (8.8-10.2); CARBON DIOXIDE LEVEL 22 MEQ/L (21-32); CHLORIDE LEVEL 111 MEQ/L (98-107); CHOLESTEROL LEVEL 145 MG/DL (<200); CHOLESTEROL RISK RATIO 2.636 (<5); CREATININE FOR GFR 0.66 MG/DL (0.55-1.30); FREE THYROXINE INDEX 3.7 % (1.3-4.8); GLOMERULAR FILTRATION RATE > 60.0 (>45); GLUCOSE, FASTING 53 MG/DL (70-100); HDL CHOLESTEROL 55 MG/DL (>40); LDL CHOLESTEROL 76 MG/DL (<100); MAGNESIUM LEVEL 2.1 MG/DL (1.8-2.4); NON-HDL-C 90 MG/DL; POTASSIUM SERUM 4.6 MEQ/L (3.5-5.1); SODIUM LEVEL 142 MEQ/L (136-145); T UPTAKE 37 % (30-39); THYROID STIMULATING HORMONE 0.562 uIU/ML (0.358-3.740); THYROXINE (T4) 9.9 UG/DL (4.5-12.0); TOTAL PROTEIN 5.7 GM/DL (6.4-8.2); TRIGLYCERIDES LEVEL 71 MG/DL (<150)
[2020-03-10] MEDS: TIOTROPIUM INHALER/CAPSULE (SPIRIVA) INH SCH (07:17)
[2020-03-10] MEDS ORDERED: PREVNAR 13 VACCINE SYRINGE IM ONE (09:00)
[2020-03-10] MEDS ORDERED: PANTOPRAZOLE 40MG TAB (PROTONIX) PO SCH (09:00)
[2020-03-10] MEDS ORDERED: PANT40TA29 PO (10:09)
[2020-03-10] MEDS: ESCITALOPRAM OXALATE 10 MG TAB (LEXAPRO) PO SCH (10:17)
[2020-03-10] MEDS: DOCUSATE SODIUM 100 MG CAP PO SCH (10:17)
--- NOTE | 2020-03-10 10:17 | DS.PDOC ---
Discharge Summary General Date of Admission Mar 08, 2020 at 17:26 Date of Discharge 03/10/20 Specialist/Consultants Involve gastroenterology Discharge Summary PROCEDURES PERFORMED DURING STAY: EGD DISCHARGE DIAGNOSES: 1. wide patent schatzki ring 2. gastroparesis 3. HTN 4. DLP 5. COPD (former smoker) 6. MDD 7. OP COMPLICATIONS/CHIEF COMPLAINT: Epigastric Pain. HPI/Hospital Course: Patient presented for abdominal pain, reported as a 10/10, occurring for an hour duration, with nausea, vomiting. Admitted for further evaluation and treatment. Seen in consultation by GI, and underwent EGD, which was relatively unremarkable - widely patent Schatzki ring. Recommendations for diet modifications, conservative treatment, outpatient followup. Her symptoms resolved and did not recur during her hospital stay. DISCHARGE MEDICATIONS: Please see below. ALLERGIES: Please see below. PHYSICAL EXAMINATION ON DISCHARGE: VITAL SIGNS: Please see below. General: NAD, lying comfortably in bed HEENT: NC, AT, PERRLA CVS: RRR, +S1S2 Lungs: CTA B/L Abdomen: soft, ND, +BS, NT Ext: no edema Skin : no visible rashes LABORATORY DATA: Please see below. ACTIVITY: [As tolerated]. DIET: low fiber, small frequent meals DISPOSITION: Discharge home DISCHARGE INSTRUCTIONS: 1. Follow up with GI - Dr. Romo in 1-2 weeks. 2. Follow up with PCP in 3-5 days. DISCHARGE CONDITION: [Stable]. TIME SPENT ON DISCHARGE: 35 minutes. Vital Signs/I&Os Vital Signs Date Time Temp Pulse Resp B/P (MAP) Pulse Ox O2 Delivery O2 Flow Rate FiO2 03/10/20 06:00 98.7 76 16 122/56 (78) 94 Room Air I&O- Last 24 Hours up to 6 AM 03/10/20 06:00 Intake Total 590 ml Output Total 0 ml Balance 590 ml Laboratory Data Labs 24H Laboratory Tests 2 03/09/20 11:48: Total Creatine Kinase 38, Creatine Kinase MB 2.7, Creatine Kinase MB Relative Index 7.11H, Troponin I < 0.02 03/09/20 14:56: Lab Scanned Report Miscellaneous Lab 03/10/20 06:03: Immature Granulocyte % (Auto) 0.5, Neutrophils (%) (Auto) 67.1H, Lymphocytes (%) (Auto) 19.6L, Monocytes (%) (Auto) 9.2H, Eosinophils (%) (Auto) 2.9, Basophils (%) (Auto) 0.7, Neutrophils # (Auto) 5.7, Lymphocytes # (Auto) 1.7, Monocytes # (Auto) 0.8, Eosinophils # (Auto) 0.3, Basophils # (Auto) 0.1, Nucleated Red Blood Cells % (auto) 0.0, Anion Gap 9, Glomerular Filtration Rate > 60.0, Estimated Mean Plasma Glucose 103, Hemoglobin A1c 5.2, Calcium Level 8.2L, Magnesium Level 2.1, Total Bilirubin 0.8, Direct Bilirubin 0.2, Aspartate Amino Transf (AST/SGOT) 20, Alanine Aminotransferase (ALT/SGPT) 23, Alkaline Phosphatase 70, Total Protein 5.7L, Albumin 2.9L, Albumin/Globulin Ratio 1.0L, Triglycerides Level 71, Total Cholesterol 145, LDL Cholesterol 76, Non-HDL Cholesterol (LDL + VLDL) 90, Total HDL Cholesterol 55, Cholesterol/HDL Ratio 2.636, Thyroid Stimulating Hormone (TSH) 0.562, Free Thyroxine Index 3.7, Thyroxine (T4) 9.9, Triiodothyronine (T3) Uptake 37 CBC/BMP Laboratory Tests 03/10/20 06:03 Discharge Medications Scheduled Atorvastatin Calcium (Atorvastatin Calcium) 40 Mg Tablet, 40 MG PO QHS, (Reported) Calcium Carbonate (Calcium) 600 Mg Tablet, 600 MG PO DAILY, (Reported) Carvedilol (Carvedilol) 6.25 Mg Tab, 6.25 MG PO BID, (Reported) Escitalopram Oxalate (Escitalopram Oxalate) 20 Mg Tab, 20 MG PO DAILY, (Reported) Fluticasone Furoate (Arnuity Ellipta) 200 Mcg/Act Inh, 200 MCG INH DAILY, (Reported) Loratadine (Loratadine) 10 Mg Tablet, 10 MG PO DAILY, (Reported) Losartan Potassium (Losartan Potassium) 50 Mg Tablet, 50 MG PO DAILY, (Reported) Montelukast Sodium (Montelukast Sodium) 10 Mg Tablet, 10 MG PO DAILY, (Reported) Multivitamins (Thera M Plus Tablet) 1 Each Tablet, 1 TAB PO DAILY, (Reported) Pantoprazole Sodium (Pantoprazole Sodium) 40 Mg Tablet.dr, 40 MG PO DAILY Umeclidinium [place] (Incruse Ellipta) 62.5 Mcg/Inh Inh, 62.5 MCG INH DAILY, (Reported) Allergies Coded Allergies: amoxicillin (Verified Allergy, Intermediate, hives, 03/08/20) ciprofloxacin (Verified Allergy, Intermediate, hives, 03/08/20) clavulanic acid (Verified Allergy, Intermediate, hives, 03/08/20) doxycycline (Verified Allergy, Intermediate, migraine, 03/08/20) pravastatin (Verified Allergy, Unknown, 03/08/20) oxycodone (Verified Adverse Reaction, Mild, MIGRAINE, 03/08/20) bupropion (Verified Adverse Reaction, Unknown, high anxiety, 03/08/20) YAAKOV YANEZ MD Mar 10, 2020 10:17
[2020-03-10] MEDS: LORATADINE 10 MG TAB PO SCH (10:18)
[2020-03-10] MEDS: MONTELUKAST 10 MG TAB PO SCH (10:18)
[2020-03-10 10:19] VITALS: BP 113/57
[2020-03-10] MEDS: LOSARTAN 50MG TABLET PO SCH (10:19)
[2020-03-10] MEDS: CARVedilol 6.25 MG TAB PO SCH (10:20)
[2020-03-10 17:11] LABS: H PYLORI SERUM QUANT IGM <9.0 units (0.0-8.9); H PYLORI SERUM QUANT IgG ABY 0.28 (0.00-0.79)
--- NOTE | 2020-03-12 07:14 | ECGEPIP ---
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
== END 2020-03-10 14:24 | disposition home or self-care (01) | DRG 392 ==
LOC: M ED 14:42 → M ED INP 17:26 → ENRESERV 17:57 → M MSPAV 19:48
PROVIDERS: ADMIT Internal Medicine; ATTEND Internal Medicine
PROC: 0DJ08ZZ Inspection of Upper Intestinal Tract, Via Natural or Artificial Opening Endoscopic (ICD-10-PCS; principal; 2020-03-09 10:00)
DX: K31.84 Gastroparesis (principal); I10 Essential (primary) hypertension; E78.5 Hyperlipidemia, unspecified; J44.9 Chronic obstructive pulmonary disease, unspecified; F32.9 Major depressive disorder, single episode, unspecified; M81.0 Age-related osteoporosis without current pathological fracture; E55.9 Vitamin D deficiency, unspecified; K22.2 Esophageal obstruction; J30.2 Other seasonal allergic rhinitis; Z88.0 Allergy status to penicillin; Z88.1 Allergy status to other antibiotic agents; Z88.8 Allergy status to other drugs, medicaments and biological substances; Z88.5 Allergy status to narcotic agent; Z87.891 Personal history of nicotine dependence; Z79.899 Other long term (current) drug therapy; Z20.828 Contact with and (suspected) exposure to other viral communicable diseases

== ENCOUNTER → 2020-05-07 | Outpatient (CLI) | payer MEDICARE, OTHER ==
[~2020-05-07] MED LIST changes: +ATOR40TA75 PO; +CALC600T61 PO; -ESCI20TA PO; +ESCI20TA16 PO; +ISOVUE-370 76% 100ML VIAL As Ordered ONE; +LORA-930 PO; +LOSA50TA88 PO; +MONT10TA10 PO; +PANT40TA29 PO; +VITMTA PO
--- NOTE | 2020-05-08 10:27 | REP ---
INDICATION: PERSONAL HX NICOTINE DEPENDENCE COMPARISON: 04/19/2019 TECHNIQUE: Axial noncontrast images from the thoracic inlet to the upper abdomen using low-dose lung screening technique (LDCT). FINDINGS: The bilateral lung hurt again demonstrate moderate emphysematous changes and chronic scarring/interstitial changes along with bronchiectasis unchanged from prior examination. Few scattered bilateral noncalcified nodules measuring up to 2 mm are again noted. No consolidation. No effusion. No pneumothorax. There is a new 6 mm noncalcified nodule along the lateral aspect of the right upper lobe. (Series 201; image 38). Evaluation of the mediastinum demonstrates stable atherosclerotic changes to the thoracic aorta and coronary arteries. No obvious adenopathy. Musculoskeletal structures are intact. IMPRESSION: Lung-RADS category 4A with new 6 mm nodule in the right upper lobe. A 3 month low-dose CT follow-up examination is recommended. <Electronically signed by Julio Arreola > 05/08/20 1024
== END ==
LOC: M RAD 13:07
PROVIDERS: ATTEND Physician Assistant
DX: Z12.2 Encounter for screening for malignant neoplasm of respiratory organs (principal); R91.8 Other nonspecific abnormal finding of lung field; Z87.891 Personal history of nicotine dependence

== ENCOUNTER → 2020-05-17 | Outpatient (REF) | payer OTHER ==
[~2020-05-17] MED LIST changes: -ISOVUE-370 76% 100ML VIAL As Ordered ONE
[2020-05-17 16:06] LABS: BLOOD UREA NITROGEN 15 MG/DL (7-18); CALCIUM LEVEL 10.3 MG/DL (8.8-10.2); CARBON DIOXIDE LEVEL 31 MEQ/L (21-32); CHLORIDE LEVEL 104 MEQ/L (98-107); CREATININE FOR GFR 0.76 MG/DL (0.55-1.30); GLOMERULAR FILTRATION RATE > 60.0 (>45); GLUCOSE, FASTING 76 MG/DL (70-100); POTASSIUM SERUM 4.3 MEQ/L (3.5-5.1); SODIUM LEVEL 141 MEQ/L (136-145)
== END ==
LOC: M PLALAB 12:59
PROVIDERS: ATTEND Family Medicine
DX: I10 Essential (primary) hypertension (principal)

== ENCOUNTER → 2020-05-25 | Outpatient (REF) | payer OTHER ==
[2020-05-25 15:42] LABS: BLOOD UREA NITROGEN 16 MG/DL (7-18); CALCIUM LEVEL 8.8 MG/DL (8.8-10.2); CARBON DIOXIDE LEVEL 30 MEQ/L (21-32); CHLORIDE LEVEL 109 MEQ/L (98-107); CREATININE FOR GFR 0.73 MG/DL (0.55-1.30); GLOMERULAR FILTRATION RATE > 60.0 (>45); GLUCOSE, FASTING 77 MG/DL (70-100); POTASSIUM SERUM 4.3 MEQ/L (3.5-5.1); SODIUM LEVEL 144 MEQ/L (136-145)
[2020-05-25 15:52] LABS: TOTAL 25(OH) VITAMIN D 32.1 NG/ML (30.0-100.0)
[2020-05-25 15:53] LABS: PTH INTACT 127.2 PG/ML (18.5-88.0)
== END ==
LOC: M PLALAB 14:07
PROVIDERS: ATTEND Family Medicine
DX: E83.52 Hypercalcemia (principal)

== ENCOUNTER → 2020-05-31 | Outpatient (CLI) | payer MEDICARE, OTHER ==
--- NOTE | 2020-05-31 14:58 | DEXAMM ---
INDICATION: M80.0 AGE REL OSTEOPOROSIS W/O FX. COMPARISON: Comparison study January 26, 2018. TECHNIQUE: Bone density was measured using dual-energy x-ray absorptionmetry (DEXA). FINDINGS: AP SPINE L1-L4 BMD 0.862 g/cm2 Young Adult T-Score -2.7 Age Matched Z-Score -1.1. LT FEMUR, TOTAL BMD 0.599 g/cm2 Young Adult T-Score -3.2 Age Matched Z-Score -2.0. LT NECK BMD 0.570 g/cm2 Young Adult T-Score -3.4 Age Matched Z-Score -1.9. RT FEMUR, TOTAL BMD 0.591 g/cm2 Young Adult T-Score -3.3 Age Matched Z-Score -2.1. RT NECK BMD 0.582 g/cm2 Young Adult T-Score -3.3 Age Matched Z-Score -1.8. IMPRESSION: There is osteoporosis of the spine. There is osteoporosis of the left hip. There is osteoporosis of the right hip. The density of the spine has increased 1.8% since the initial exam on January 26, 2018. The density of the left hip has decreased 1.3% since initial exam on January 26, 2018. The density of the right hip has decreased 2.8% since the initial exam on January 26, 2018. FOLLOW-UP: Recommendation for the next bone density exam: 2 years. <Electronically signed by Terry Sylvester > 05/31/20 [id number]
== END ==
LOC: M WHC 13:36
PROVIDERS: ATTEND Family Medicine
DX: M81.0 Age-related osteoporosis without current pathological fracture (principal)

== ENCOUNTER → 2020-07-06 | Outpatient (REF) | payer MEDICARE, OTHER ==
[2020-07-06 14:36] LABS: CALCIUM, 24 HOUR URINE 73.5 MG/24HR (42-353); CALCIUM, URINE 24.5 MG/DL
== END ==
LOC: M LAB REF 13:21
PROVIDERS: ATTEND Internal Medicine Endocrinology, Diabetes & Metabolism
DX: M81.0 Age-related osteoporosis without current pathological fracture (principal)

== ENCOUNTER → 2020-07-26 | Outpatient (CLI) | payer MEDICARE, OTHER ==
--- NOTE | 2020-07-27 08:12 | REP ---
INDICATION: ABN FINDING OF LUNG COMPARISON: 05/07/2020 TECHNIQUE: Axial noncontrast images from the thoracic inlet to the upper abdomen with coronal and sagittal reformations. This CT examination was performed using the following dose reduction techniques: Automated exposure control, adjustment of mA and/or kv according to the patient's size, and use of iterative reconstruction technique. FINDINGS: Advanced COPD/emphysematous changes with scattered scarring and few small scattered pulmonary nodules are again identified and unchanged. The 6 mm new nodule in the right upper lobe on most recent examination dated 05/07/2020 has resolved and likely represented a small transient area of atelectasis. No acute consolidation, significant nodule or mass lesion identified. No pleural effusion. No pneumothorax. Mild chronic bronchiectasis again suggested. No adenopathy. Atherosclerotic changes to the thoracic aorta and coronary arteries again noted. No cardiomegaly or pericardial effusion. Surrounding musculoskeletal structures demonstrate age-related degenerative changes. Bilateral mammoplasty. IMPRESSION: 1. Chronic COPD/emphysematous changes and scattered scarring along with few small scattered stable nodules. 2. Previously identified 6 mm nodule in the right upper lobe has resolved. 3. No acute mediastinal or pleuroparenchymal process appreciated. <Electronically signed by Julio Arreola > 07/27/20 [id number]
== END ==
LOC: M RAD 17:03
PROVIDERS: ATTEND Physician Assistant
DX: R91.8 Other nonspecific abnormal finding of lung field (principal); J44.9 Chronic obstructive pulmonary disease, unspecified; E21.3 Hyperparathyroidism, unspecified

== ENCOUNTER → 2020-07-26 | Outpatient (REF) | payer MEDICARE, OTHER ==
[2020-07-26 21:00] LABS: CALCIUM, 24 HOUR URINE 125.4 MG/24HR (42-353); CALCIUM, URINE 13.2 MG/DL; CREATININE, URINE 57.9 MG/DL
== END ==
LOC: M LAB REF 14:57
PROVIDERS: ATTEND Nurse Practitioner Family
DX: E21.3 Hyperparathyroidism, unspecified (principal)

== ENCOUNTER → 2020-09-26 | Outpatient (CLI) | payer MEDICARE, OTHER ==
[2020-09-26 14:54] LABS: BLOOD UREA NITROGEN 10 MG/DL (7-18); CALCIUM LEVEL 8.9 MG/DL (8.8-10.2); CARBON DIOXIDE LEVEL 32 MEQ/L (21-32); CHLORIDE LEVEL 106 MEQ/L (98-107); CREATININE FOR GFR 0.66 MG/DL (0.55-1.30); GLOMERULAR FILTRATION RATE > 60.0 (>45); GLUCOSE, FASTING 76 MG/DL (70-100); POTASSIUM SERUM 4.1 MEQ/L (3.5-5.1); SODIUM LEVEL 139 MEQ/L (136-145)
[2020-09-26 15:05] LABS: PTH INTACT 68.6 PG/ML (18.5-88.0); TOTAL 25(OH) VITAMIN D 33.2 NG/ML (30.0-100.0)
== END ==
LOC: M LAB 13:58
PROVIDERS: ATTEND Nurse Practitioner Family
DX: E21.3 Hyperparathyroidism, unspecified (principal)

== ENCOUNTER 2020-11-12 13:59 | Outpatient (CLI) | payer MEDICARE, OTHER ==
[~2020-11-12] VITALS: Ht 154.9 cm; Wt 43.5 kg
[~2020-11-12 13:59] MED LIST changes: +LOSA50TA28 PO; -LOSA50TA88 PO; -MONT10TA10 PO; +MONT10TA97 PO; +ZOLEDRONIC ACID 5 MG in IV 1 EA IV ONE
[2020-11-12] MEDS ORDERED: ZOLEDRONIC ACID 5 MG in IV 1 EA IV ONE (14:00)
[2020-11-12 15:20] VITALS: BP 138/67
[2020-11-12 16:30] VITALS: BP 126/66
== END 2020-11-12 15:30 | disposition home or self-care (01) ==
LOC: M INFU 13:59
PROVIDERS: ATTEND Family Medicine
DX: M81.0 Age-related osteoporosis without current pathological fracture (principal); Z88.1 Allergy status to other antibiotic agents; Z88.8 Allergy status to other drugs, medicaments and biological substances; Z88.6 Allergy status to analgesic agent
CPT/HCPCS: 96365; J3489

== ENCOUNTER → 2021-09-06 | Outpatient (CLI) | payer MEDICARE, OTHER ==
[~2021-09-06] MED LIST changes: -ZOLEDRONIC ACID 5 MG in IV 1 EA IV ONE
== END ==
LOC: M RAD 13:43
PROVIDERS: ATTEND Internal Medicine Pulmonary Disease
DX: Z12.2 Encounter for screening for malignant neoplasm of respiratory organs (principal); R91.1 Solitary pulmonary nodule; Z87.891 Personal history of nicotine dependence

== ENCOUNTER → 2021-10-07 | Outpatient (CLI) | payer MEDICARE ==
[2021-10-07 17:06] LABS: BASO # 0.1 10^3/uL (0.0-0.2); BASO % 0.8 % (0.0-1.0); EOS # 0.3 10^3/uL (0.0-0.5); EOS % 3.1 % (0.0-3.0); HEMOGLOBIN 14.1 g/dl (12.0-15.5); LYMPH # 2.6 10^3/uL (1.5-5.0); LYMPH % 24.4 % (24.0-44.0); MEAN CORPUSCULAR HEMOGLOBIN 32.2 pg (27.0-33.0); MEAN CORPUSCULAR HGB CONC 32.8 g/dl (32.0-36.5); MEAN CORPUSCULAR VOLUME 98.2 fl (80.0-96.0); MONO # 0.9 10^3/uL (0.0-0.8); MONO % 8.3 % (2.0-8.0); NEUTROPHILS # 6.7 10^3/uL (1.5-8.5); NEUTROPHILS % 63.1 % (36.0-66.0); PLATELET COUNT, AUTOMATED 227 10^3/uL (150-450); RED BLOOD COUNT 4.38 10^6/uL (4.00-5.40); WHITE BLOOD COUNT 10.7 10^3/uL (4.0-10.0)
[2021-10-07 17:46] LABS: ALBUMIN 3.4 GM/DL (3.2-5.2); ALT/SGPT 26 U/L (12-78); BILIRUBIN,TOTAL 0.7 MG/DL (0.2-1.0); BLOOD UREA NITROGEN 16 MG/DL (7-18); CALCIUM LEVEL 9.4 MG/DL (8.8-10.2); CARBON DIOXIDE LEVEL 28 MEQ/L (21-32); CHLORIDE LEVEL 110 MEQ/L (98-107); CHOLESTEROL LEVEL 140 MG/DL (<200); CHOLESTEROL RISK RATIO 2.372 (<5); CREATININE FOR GFR 0.71 MG/DL (0.55-1.30); FREE T4 1.15 NG/DL (0.76-1.46); GLOMERULAR FILTRATION RATE > 60.0 (>45); GLUCOSE, FASTING 81 MG/DL (70-100); HDL CHOLESTEROL 59 MG/DL (>40); LDL CHOLESTEROL 64 MG/DL (<100); NON-HDL-C 81 MG/DL; POTASSIUM SERUM 4.4 MEQ/L (3.5-5.1); SODIUM LEVEL 143 MEQ/L (136-145); TOTAL PROTEIN 6.6 GM/DL (6.4-8.2); TRIGLYCERIDES LEVEL 85 MG/DL (<150)
[2021-10-07 18:23] LABS: TOTAL 25(OH) VITAMIN D 39.2 NG/ML (30.0-100.0)
== END ==
LOC: M PLALAB 15:57
PROVIDERS: ATTEND Physician Assistant
DX: I10 Essential (primary) hypertension (principal); E55.9 Vitamin D deficiency, unspecified; E78.2 Mixed hyperlipidemia; Z79.899 Other long term (current) drug therapy

== ENCOUNTER 2021-11-13 14:45 | Outpatient (CLI) | payer MEDICARE ==
[~2021-11-13] VITALS: Ht 154.9 cm; Wt 40.4 kg
[2021-11-13 14:50] VITALS: BP 161/75
[2021-11-13] MEDS ORDERED: SING10TA32 PO (14:59)
[2021-11-13] MEDS ORDERED: ZOLEDRONIC ACID 5 MG OVER 15 MINUTES IV ONE ×2 (15:00)
[2021-11-13] MEDS ORDERED: TREL1AER PO (15:02)
[2021-11-13 15:35] VITALS: BP 143/67
== END 2021-11-13 15:35 ==
LOC: M INFU 14:45
PROVIDERS: ATTEND Physician Assistant
DX: M81.0 Age-related osteoporosis without current pathological fracture (principal); Z88.0 Allergy status to penicillin; Z88.1 Allergy status to other antibiotic agents; Z88.5 Allergy status to narcotic agent; Z88.8 Allergy status to other drugs, medicaments and biological substances
CPT/HCPCS: 96413; J3489

== ENCOUNTER → 2021-12-09 | Outpatient (CLI) | payer MEDICARE ==
[~2021-12-09] MED LIST changes: +SING10TA32 PO; +TREL1AER PO
== END ==
LOC: M RAD 16:12
PROVIDERS: ATTEND Physician Assistant
DX: R91.8 Other nonspecific abnormal finding of lung field (principal)

== ENCOUNTER → 2023-08-25 | Outpatient (CLI) | payer MEDICARE ==
[~2023-08-25] MED LIST changes: -BENI1TAB3 PO; +MONT-5 PO; +OLME20TA55 PO; -SING10TA32 PO
== END ==
LOC: M WUC 13:11
PROVIDERS: ATTEND Physician Assistant
DX: R07.1 Chest pain on breathing (principal)

== ENCOUNTER → 2023-09-30 | Outpatient (CLI) | payer MEDICARE ==
[~2023-09-30] MED LIST changes: +ALBU8.5H INH; +EMGA120I SC; +FLUT1BLS8 INH; +LEXA1TAB2 PO; +NAPR-885 PO; +TIZA10TA PO
== END ==
LOC: M WUC 10:30
PROVIDERS: ATTEND Physician Assistant
DX: R10.9 Unspecified abdominal pain (principal)

== ENCOUNTER 2023-10-02 15:06 | Inpatient (IN) | payer MEDICARE, OTHER ==
[~2023-10-02] VITALS: Ht 152.4 cm; Wt 35.7 kg
[~2023-10-02 15:06] MED LIST changes: -ALBU8.5H INH; -EMGA120I SC; -FLUT1BLS8 INH; -LEXA1TAB2 PO; -NAPR-885 PO; -TIZA10TA PO
[2023-10-02 16:16] LABS: BASO # 0.1 10^3/uL (0.0-0.2); BASO % 0.9 % (0.0-1.0); EOS # 0.4 10^3/uL (0.0-0.5); EOS % 2.7 % (0.0-3.0); HEMATOCRIT 42.7 % (36.0-47.0); HEMOGLOBIN 13.8 g/dl (12.0-15.5); LYMPH # 2.6 10^3/uL (1.5-5.0); MEAN CORPUSCULAR HEMOGLOBIN 31.5 pg (27.0-33.0); MEAN CORPUSCULAR HGB CONC 32.3 g/dl (32.0-36.5); MEAN CORPUSCULAR VOLUME 97.5 fl (80.0-96.0); MONO # 1.1 10^3/uL (0.0-0.8); MONO % 6.9 % (2.0-8.0); NEUTROPHILS # 11.8 10^3/uL (1.5-8.5); NEUTROPHILS % 73.1 % (36.0-66.0); PLATELET COUNT, AUTOMATED 331 10^3/uL (150-450); RED BLOOD COUNT 4.38 10^6/uL (4.00-5.40); WHITE BLOOD COUNT 16.1 10^3/uL (4.0-10.0)
[2023-10-02] MEDS: GASTROGRAFIN SOLUTION 30ML PO SCH (16:21)
[2023-10-02] MEDS: NS 500 ML IV ONE (16:21)
[2023-10-02 16:38] LABS: LIPASE 72 U/L (12-53)
[2023-10-02 16:40] LABS: ALBUMIN 2.9 G/DL (3.2-5.2); ALKALINE PHOSPHATASE 177 U/L (46-116); ALT/SGPT 28 U/L (7.0-40); AST/SGOT 34 U/L (<34); BILIRUBIN,DIRECT 0.2 MG/DL (<0.4); BILIRUBIN,TOTAL 0.6 MG/DL (0.3-1.2); BLOOD UREA NITROGEN 17 MG/DL (9-23); CALCIUM LEVEL 9.3 MG/DL (8.3-10.6); CARBON DIOXIDE LEVEL 28 MMOL/L (20-31); CHLORIDE LEVEL 103 MMOL/L (98-107); CREATININE FOR GFR 0.51 MG/DL (0.55-1.30); GLOMERULAR FILTRATION RATE > 60.0 (>45); GLUCOSE, FASTING 90 MG/DL (74-106); POTASSIUM SERUM 3.9 MMOL/L (3.5-5.1); SODIUM LEVEL 136 MMOL/L (136-145); TOTAL PROTEIN 6.6 G/DL (5.7-8.2)
[2023-10-02] MEDS ORDERED: ISOVUE-370 76% 100ML VIAL As Ordered ONE (16:54)
[2023-10-02] MEDS: ceFAZolin SOD 1 GM in D5W MINI-BAG PLUS 50 ML IV ONE (18:58)
[2023-10-02] MEDS: GLYCERIN ADULT SUPP PR ONE (18:58)
[2023-10-02] MEDS: metroNIDAZOLE 500 MG in IV 1 EA IV ONE (19:34)
[2023-10-02] MEDS: FLEET OIL RETENTION ENEMA PR PRN (19:35)
[2023-10-02] MEDS ORDERED: ALBU8.5H INH (21:35)
[2023-10-02] MEDS ORDERED: EMGA120I SC (21:35)
[2023-10-02] MEDS ORDERED: LEXA1TAB2 PO (21:35)
[2023-10-02] MEDS ORDERED: NAPR-885 PO (21:35)
[2023-10-02] MEDS ORDERED: FLUT1BLS8 INH (21:35)
[2023-10-02] MEDS ORDERED: TIZA10TA PO (21:37)
[2023-10-02] MEDS ORDERED: HOME MED LIST COMPLETE! XX SCH (21:40)
[2023-10-03] MEDS: LR 1,000 ML IV SCH (00:28)
[2023-10-03 00:34] VITALS: TEMP 97.9; O2SAT 93
[2023-10-03 00:48] VITALS: BP 142/84
[2023-10-03 04:15] VITALS: BP 162/84; TEMP 97.9; O2SAT 93
[2023-10-03] MEDS: metroNIDAZOLE 500 MG in IV 1 EA IV SCH (04:25)
[2023-10-03] MEDS: KETOROLAC 30 MG/ML 1ML VIAL IV PRN (04:25)
[2023-10-03 05:35] LABS: HEMOGLOBIN 12.8 g/dl (12.0-15.5); MEAN CORPUSCULAR HEMOGLOBIN 31.8 pg (27.0-33.0); MEAN CORPUSCULAR HGB CONC 32.8 g/dl (32.0-36.5); PLATELET COUNT, AUTOMATED 286 10^3/uL (150-450); RED BLOOD COUNT 4.02 10^6/uL (4.00-5.40); WHITE BLOOD COUNT 12.9 10^3/uL (4.0-10.0)
[2023-10-03 06:13] LABS: ALBUMIN 2.3 G/DL (3.2-5.2); ALKALINE PHOSPHATASE 155 U/L (46-116); ALT/SGPT 20 U/L (7.0-40); AST/SGOT 26 U/L (<34); BILIRUBIN,TOTAL 0.5 MG/DL (0.3-1.2); BLOOD UREA NITROGEN 9 MG/DL (9-23); CALCIUM LEVEL 8.2 MG/DL (8.3-10.6); CARBON DIOXIDE LEVEL 25 MMOL/L (20-31); CHLORIDE LEVEL 110 MMOL/L (98-107); CREATININE FOR GFR 0.47 MG/DL (0.55-1.30); GLOMERULAR FILTRATION RATE > 60.0 (>45); GLUCOSE, FASTING 75 MG/DL (74-106); MAGNESIUM LEVEL 1.8 MG/DL (1.8-2.4); POTASSIUM SERUM 3.9 MMOL/L (3.5-5.1); SODIUM LEVEL 142 MMOL/L (136-145); TOTAL PROTEIN 5.6 G/DL (5.7-8.2)
[2023-10-03] MEDS: PANTOPRAZOLE 40MG VIAL IV SCH (08:31)
[2023-10-03] MEDS: ENOXAPARIN 30MG/0.3ML SYRINGE (J1650 PER 10MG) SC SCH (08:34)
[2023-10-03] MEDS: ACETAMINOPHEN TAB 650MG DOSE (2X325MG) PO PRN (09:16)
[2023-10-03] MEDS: CEFDINIR 300 MG CAP (OMNICEF) PO SCH (10:08)
[2023-10-03] MEDS: CARVedilol 6.25 MG TAB PO SCH (10:08)
[2023-10-03] MEDS: SENOKOT S TAB PO SCH (10:08)
[2023-10-03] MEDS: HEPARIN SOD (PORCINE) 5000UNITS/ML 1ML VIAL/SYRINGE SC SCH (10:12)
[2023-10-03] MEDS ORDERED: MAGNESIUM CITRATE 300ML BTL PO ONE (10:45)
[2023-10-03] MEDS: BISACODYL 10MG SUPP PR SCH (11:13)
[2023-10-03] MEDS: LACTULOSE 20GM/30ML SYRUP UDC PO ONE (11:47)
[2023-10-03 12:00] VITALS: BP 130/90; TEMP 97.5; O2SAT 92
[2023-10-03] MEDS: ONDANSETRON 4MG 2ML VIAL IV PRN (15:46)
[2023-10-03] MEDS: MORPHINE 2 MG/ML 1ML VIAL IV PRN (19:57)
[2023-10-03] MEDS ORDERED: SIMETHICONE 80MG CHEW TAB PO PRN (20:05)
[2023-10-03 20:10] VITALS: BP 110/80; TEMP 97.5; O2SAT 92
[2023-10-03] MEDS: MAGNESIUM CITRATE 300ML BTL NG ONE (22:25)
[2023-10-04 04:00] VITALS: BP 116/64; TEMP 97.7; O2SAT 89
[2023-10-04 05:52] LABS: BASO # 0.1 10^3/uL (0.0-0.2); BASO % 0.3 % (0.0-1.0); EOS % 0.1 % (0.0-3.0); HEMATOCRIT 39.7 % (36.0-47.0); HEMOGLOBIN 12.8 g/dl (12.0-15.5); LYMPH # 1.5 10^3/uL (1.5-5.0); LYMPH % 5.2 % (24.0-44.0); MEAN CORPUSCULAR HEMOGLOBIN 32.1 pg (27.0-33.0); MEAN CORPUSCULAR HGB CONC 32.2 g/dl (32.0-36.5); MEAN CORPUSCULAR VOLUME 99.5 fl (80.0-96.0); MONO # 1.3 10^3/uL (0.0-0.8); MONO % 4.4 % (2.0-8.0); NEUTROPHILS # 25.5 10^3/uL (1.5-8.5); PLATELET COUNT, AUTOMATED 303 10^3/uL (150-450); RED BLOOD COUNT 3.99 10^6/uL (4.00-5.40); WHITE BLOOD COUNT 28.7 10^3/uL (4.0-10.0)
[2023-10-04 06:17] LABS: BLOOD UREA NITROGEN 10 MG/DL (9-23); CALCIUM LEVEL 8.4 MG/DL (8.3-10.6); CARBON DIOXIDE LEVEL 22 MMOL/L (20-31); CHLORIDE LEVEL 106 MMOL/L (98-107); CREATININE FOR GFR 0.47 MG/DL (0.55-1.30); GLOMERULAR FILTRATION RATE > 60.0 (>45); GLUCOSE, FASTING 81 MG/DL (74-106); POTASSIUM SERUM 4.3 MMOL/L (3.5-5.1); SODIUM LEVEL 138 MMOL/L (136-145)
[2023-10-04] MEDS: ceFAZolin SOD 2 GM in IV 1 EA IV SCH (08:23)
[2023-10-04] MEDS ORDERED: propofoL 200 MG/20 ML VIAL As Ordered ONE (09:46)
[2023-10-04] MEDS ORDERED: LIDOCAINE 2% 100MG/5ML SDV (FOR ANES.) As Ordered ONE (09:46)
[2023-10-04] MEDS ORDERED: ROCURONIUM BROMIDE 50MG/5ML VIAL As Ordered ONE (09:54)
[2023-10-04] MEDS ORDERED: ONDANSETRON 4MG 2ML VIAL As Ordered ONE (09:54)
[2023-10-04] MEDS ORDERED: fentaNYL 100 MCG/2 ML INJECTION As Ordered ONE (10:08)
[2023-10-04] MEDS ORDERED: SUGAMMADEX SODIUM 500 MG/5 ML VIAL (BRIDION) As Ordered ONE (10:09)
[2023-10-04] MEDS ORDERED: PHENYLephrine 500MCG 5ML (100MCG/ML) SYRINGE As Ordered ONE (10:47)
[2023-10-04] MEDS: LEVALBUTEROL 1.25MG 0.5ML CONCENTRATE NEB INH ONE (11:13)
[2023-10-04] MEDS ORDERED: ONDANSETRON 4MG 2ML VIAL IV PRN (11:20)
[2023-10-04 11:41] VITALS: BP 104/60; TEMP 97.3; O2SAT 95
[2023-10-04] MEDS: SIMETHICONE 80MG CHEW TAB PO SCH (12:23)
[2023-10-04] MEDS: FLEET ENEMA PR PRN (18:17)
[2023-10-04 20:01] VITALS: BP 122/60; TEMP 98.1; O2SAT 94
[2023-10-05 05:03] VITALS: BP 130/80; TEMP 98.1; O2SAT 94
[2023-10-05 06:45] LABS: BASO % 0.2 % (0.0-1.0); HEMATOCRIT 36.7 % (36.0-47.0); HEMOGLOBIN 11.8 g/dl (12.0-15.5); LYMPH # 1.2 10^3/uL (1.5-5.0); LYMPH % 5.8 % (24.0-44.0); MEAN CORPUSCULAR HEMOGLOBIN 31.6 pg (27.0-33.0); MEAN CORPUSCULAR HGB CONC 32.2 g/dl (32.0-36.5); MEAN CORPUSCULAR VOLUME 98.4 fl (80.0-96.0); MONO # 0.9 10^3/uL (0.0-0.8); MONO % 4.6 % (2.0-8.0); NEUTROPHILS # 17.9 10^3/uL (1.5-8.5); NEUTROPHILS % 88.5 % (36.0-66.0); PLATELET COUNT, AUTOMATED 289 10^3/uL (150-450); RED BLOOD COUNT 3.73 10^6/uL (4.00-5.40); WHITE BLOOD COUNT 20.2 10^3/uL (4.0-10.0)
[2023-10-05 07:10] LABS: BLOOD UREA NITROGEN 13 MG/DL (9-23); CARBON DIOXIDE LEVEL 26 MMOL/L (20-31); CHLORIDE LEVEL 108 MMOL/L (98-107); CREATININE FOR GFR 0.49 MG/DL (0.55-1.30); GLOMERULAR FILTRATION RATE > 60.0 (>45); GLUCOSE, FASTING 107 MG/DL (74-106); MAGNESIUM LEVEL 1.8 MG/DL (1.8-2.4); POTASSIUM SERUM 4.3 MMOL/L (3.5-5.1); SODIUM LEVEL 140 MMOL/L (136-145)
[2023-10-05] MEDS: MAGNESIUM CITRATE 300ML BTL NG ONE (08:26)
[2023-10-05 13:37] VITALS: BP 130/82; TEMP 97.5; O2SAT 97
[2023-10-05 19:58] VITALS: TEMP 97.7; O2SAT 99
[2023-10-05] MEDS: FLUTICASONE HFA 110MCG 12GM INHALER (FLOVENT) INH SCH (20:00)
[2023-10-05 20:06] VITALS: BP 155/90
[2023-10-06] MEDS: ALBUTEROL 90 MCG/ACT 8GM HFA INHALER INH PRN (00:08)
[2023-10-06] MEDS: MONTELUKAST 10 MG TAB PO SCH (02:42)
[2023-10-06] MEDS: IPRATROPIUM 0.5MG/ALBUTEROL 2.5MG INH SOL UD 3ML (DUONEB) NEB SCH (02:54)
[2023-10-06] MEDS: ESCITALOPRAM OXALATE 10 MG TAB (LEXAPRO) PO SCH (04:25)
[2023-10-06 04:30] VITALS: TEMP 97.2; O2SAT 95
[2023-10-06 06:09] VITALS: BP 118/92
[2023-10-06 06:15] LABS: BASO # 0.1 10^3/uL (0.0-0.2); BASO % 0.3 % (0.0-1.0); EOS # 0.3 10^3/uL (0.0-0.5); EOS % 1.5 % (0.0-3.0); HEMOGLOBIN 12.9 g/dl (12.0-15.5); LYMPH # 1.4 10^3/uL (1.5-5.0); LYMPH % 7.9 % (24.0-44.0); MEAN CORPUSCULAR HEMOGLOBIN 31.9 pg (27.0-33.0); MEAN CORPUSCULAR HGB CONC 32.3 g/dl (32.0-36.5); MONO # 1.1 10^3/uL (0.0-0.8); MONO % 6.2 % (2.0-8.0); NEUTROPHILS # 14.7 10^3/uL (1.5-8.5); NEUTROPHILS % 83.4 % (36.0-66.0); PLATELET COUNT, AUTOMATED 320 10^3/uL (150-450); RED BLOOD COUNT 4.04 10^6/uL (4.00-5.40); WHITE BLOOD COUNT 17.6 10^3/uL (4.0-10.0)
[2023-10-06 06:38] LABS: BLOOD UREA NITROGEN 11 MG/DL (9-23); CALCIUM LEVEL 7.7 MG/DL (8.3-10.6); CARBON DIOXIDE LEVEL 32 MMOL/L (20-31); CHLORIDE LEVEL 103 MMOL/L (98-107); CREATININE FOR GFR 0.42 MG/DL (0.55-1.30); GLOMERULAR FILTRATION RATE > 60.0 (>45); GLUCOSE, FASTING 69 MG/DL (74-106); MAGNESIUM LEVEL 2.1 MG/DL (1.8-2.4); POTASSIUM SERUM 4.3 MMOL/L (3.5-5.1); SODIUM LEVEL 137 MMOL/L (136-145)
[2023-10-06] MEDS: ALPRAZolam 0.25 MG TAB PO ONE (07:21)
[2023-10-06] MEDS: ADVAIR HFA 230/21MCG INHALER INH SCH (08:00)
[2023-10-06] MEDS: LORATADINE 10 MG TAB PO SCH (08:26)
[2023-10-06 08:36] LABS: INR 1.15; PARTIAL THROMBOPLASTIN TIME 31.6 SECONDS (24.8-34.2); PROTHROMBIN TIME 14.4 SECONDS (12.5-14.5)
[2023-10-06] MEDS: FUROSEMIDE 40MG/4ML VIAL IV ONE (09:19)
[2023-10-06] MEDS: methylPREDNISolone 40MG 1ML VIAL IV ONE (09:19)
[2023-10-06] MEDS: METOCLOPRAMIDE INJ 10MG/2ML VIAL IV SCH (11:33)
[2023-10-06 12:19] VITALS: BP 118/76
[2023-10-06 20:06] VITALS: BP 130/95; TEMP 97.3; O2SAT 92
[2023-10-06] MEDS: ATORVASTATIN 20 MG TAB PO SCH (20:51)
[2023-10-07] VITALS (10 sets, daily range): BP systolic 94–133; BP diastolic 61–84; TEMP 97.7–98.5; O2SAT 91–95
[2023-10-07 06:01] LABS: BASO % 0.1 % (0.0-1.0); HEMATOCRIT 37.4 % (36.0-47.0); LYMPH # 1.3 10^3/uL (1.5-5.0); LYMPH % 8.3 % (24.0-44.0); MEAN CORPUSCULAR HEMOGLOBIN 31.4 pg (27.0-33.0); MEAN CORPUSCULAR HGB CONC 32.1 g/dl (32.0-36.5); MEAN CORPUSCULAR VOLUME 97.9 fl (80.0-96.0); MONO # 0.8 10^3/uL (0.0-0.8); MONO % 5.3 % (2.0-8.0); NEUTROPHILS % 85.5 % (36.0-66.0); PLATELET COUNT, AUTOMATED 331 10^3/uL (150-450); RED BLOOD COUNT 3.82 10^6/uL (4.00-5.40); WHITE BLOOD COUNT 15.2 10^3/uL (4.0-10.0)
[2023-10-07 06:28] LABS: BLOOD UREA NITROGEN 14 MG/DL (9-23); CALCIUM LEVEL 7.8 MG/DL (8.3-10.6); CARBON DIOXIDE LEVEL 27 MMOL/L (20-31); CHLORIDE LEVEL 100 MMOL/L (98-107); CREATININE FOR GFR 0.48 MG/DL (0.55-1.30); GLOMERULAR FILTRATION RATE > 60.0 (>45); GLUCOSE, FASTING 71 MG/DL (74-106); MAGNESIUM LEVEL 2.2 MG/DL (1.8-2.4); POTASSIUM SERUM 3.7 MMOL/L (3.5-5.1); SODIUM LEVEL 137 MMOL/L (136-145)
[2023-10-07] MEDS: FUROSEMIDE 40MG/4ML VIAL IV ONE (08:08)
[2023-10-07] MEDS: AZITHROMYCIN 250MG TABLET PO SCH (08:09)
[2023-10-07] MEDS: LACTOBACILLUS ACIDOPHILUS CAP (BACID) PO SCH (08:10)
[2023-10-07] MEDS: ENOXAPARIN 40MG/0.4ML SYRINGE (J1650 PER 10MG) SC SCH (14:35)
[2023-10-07] MEDS: AMIODARONE HCL 150 MG in IV 1 EA IV ONE (15:17)
[2023-10-07 15:30] LABS: MAGNESIUM LEVEL 2.1 MG/DL (1.8-2.4); PHOSPHORUS LEVEL 2.7 MG/DL (2.4-5.1); POTASSIUM SERUM 3.6 MMOL/L (3.5-5.1)
[2023-10-07] MEDS ORDERED: AMIODARONE HCL 360 MG in IV 1 EA IV SCH ×2 (16:00→22:00)
[2023-10-07] MEDS: DIGOXIN INJ 0.5 MG/2 ML AMP IV ONE (16:35)
[2023-10-07] MEDS: METOPROLOL TART 25 MG TABLET PO SCH (16:35)
[2023-10-07] MEDS: DIGOXIN INJ 0.5 MG/2 ML AMP IV STA (18:04)
[2023-10-07] MEDS: DIGOXIN INJ 0.5 MG/2 ML AMP IV SCH (20:21)
[2023-10-07] MEDS ORDERED: NS 500 ML IV PRN (22:40)
[2023-10-07] MEDS: dilTIAZem 25MG/5ML VIAL IV STA (23:00)
[2023-10-07] MEDS: KCL 10MEQ/100ML SWI (KRUN) 10 MEQ in IV 1 EA IV SCH (23:01)
[2023-10-08] VITALS (29 sets, daily range): BP systolic 146–158; BP diastolic 80–84; TEMP 96.7–97.7; O2SAT 90–95
[2023-10-08 07:00] LABS: BASO % 0.1 % (0.0-1.0); EOS # 0.1 10^3/uL (0.0-0.5); EOS % 0.7 % (0.0-3.0); HEMATOCRIT 38.3 % (36.0-47.0); HEMOGLOBIN 12.4 g/dl (12.0-15.5); LYMPH # 1.6 10^3/uL (1.5-5.0); LYMPH % 11.3 % (24.0-44.0); MEAN CORPUSCULAR HEMOGLOBIN 31.4 pg (27.0-33.0); MEAN CORPUSCULAR HGB CONC 32.4 g/dl (32.0-36.5); MONO # 1.1 10^3/uL (0.0-0.8); MONO % 7.5 % (2.0-8.0); NEUTROPHILS # 11.2 10^3/uL (1.5-8.5); NEUTROPHILS % 79.8 % (36.0-66.0); PLATELET COUNT, AUTOMATED 331 10^3/uL (150-450); RED BLOOD COUNT 3.95 10^6/uL (4.00-5.40); WHITE BLOOD COUNT 14.1 10^3/uL (4.0-10.0)
[2023-10-08 07:25] LABS: BLOOD UREA NITROGEN 17 MG/DL (9-23); CALCIUM LEVEL 7.9 MG/DL (8.3-10.6); CARBON DIOXIDE LEVEL 29 MMOL/L (20-31); CHLORIDE LEVEL 99 MMOL/L (98-107); CREATININE FOR GFR 0.49 MG/DL (0.55-1.30); GLOMERULAR FILTRATION RATE > 60.0 (>45); GLUCOSE, FASTING 70 MG/DL (74-106); POTASSIUM SERUM 3.9 MMOL/L (3.5-5.1); SODIUM LEVEL 138 MMOL/L (136-145)
[2023-10-08] MEDS: FUROSEMIDE 40MG/4ML VIAL IV ONE (08:39)
[2023-10-08] MEDS: DIGOXIN 0.125 MG TAB PO SCH (08:41)
[2023-10-08] MEDS ORDERED: FUROSEMIDE 40 MG TAB PO SCH (09:00)
[2023-10-09] VITALS (22 sets, daily range): BP systolic 110–160; BP diastolic 72–90; TEMP 97–99.4; O2SAT 88–95
[2023-10-09] MEDS: APIXABAN 5 MG TAB (ELIQUIS) PO SCH (05:44)
[2023-10-09 06:15] LABS: BASO % 0.1 % (0.0-1.0); EOS # 0.1 10^3/uL (0.0-0.5); EOS % 1.1 % (0.0-3.0); HEMATOCRIT 37.2 % (36.0-47.0); HEMOGLOBIN 12.3 g/dl (12.0-15.5); LYMPH # 1.2 10^3/uL (1.5-5.0); LYMPH % 11.1 % (24.0-44.0); MEAN CORPUSCULAR HEMOGLOBIN 31.9 pg (27.0-33.0); MEAN CORPUSCULAR HGB CONC 33.1 g/dl (32.0-36.5); MEAN CORPUSCULAR VOLUME 96.6 fl (80.0-96.0); MONO # 0.8 10^3/uL (0.0-0.8); MONO % 7.5 % (2.0-8.0); NEUTROPHILS # 8.8 10^3/uL (1.5-8.5); NEUTROPHILS % 79.7 % (36.0-66.0); PLATELET COUNT, AUTOMATED 291 10^3/uL (150-450); RED BLOOD COUNT 3.85 10^6/uL (4.00-5.40); WHITE BLOOD COUNT 11.1 10^3/uL (4.0-10.0)
[2023-10-09 06:27] LABS: BLOOD UREA NITROGEN 10 MG/DL (9-23); CALCIUM LEVEL 7.8 MG/DL (8.3-10.6); CARBON DIOXIDE LEVEL 34 MMOL/L (20-31); CHLORIDE LEVEL 99 MMOL/L (98-107); CREATININE FOR GFR 0.41 MG/DL (0.55-1.30); GLOMERULAR FILTRATION RATE > 60.0 (>45); GLUCOSE, FASTING 77 MG/DL (74-106); MAGNESIUM LEVEL 1.8 MG/DL (1.8-2.4); POTASSIUM SERUM 3.2 MMOL/L (3.5-5.1); SODIUM LEVEL 140 MMOL/L (136-145)
[2023-10-09] MEDS: POTASSIUM CHLORIDE 10MEQ SR TABLET PO SCH (10:28)
[2023-10-09] MEDS: FUROSEMIDE 40MG/4ML VIAL IV SCH (10:31)
[2023-10-09] MEDS ORDERED: E-Z-PAQUE 96% w/w SUSP 176GM BTL As Ordered ONE (11:21)
[2023-10-09] MEDS ORDERED: VARIBAR PUDDING 40% w/v 230ML TUBE As Ordered ONE (11:21)
[2023-10-09] MEDS ORDERED: VARIBAR NECTAR 40% w/v 240ML SUSP BTL As Ordered ONE (11:21)
[2023-10-09] MEDS ORDERED: BARIUM SULFATE 700 MG TABLET (E-Z-DISK) As Ordered ONE (11:21)
[2023-10-09] MEDS: METOPROLOL TART 12.5 MG PER 1/2 TAB PO ONE (14:56)
[2023-10-09] MEDS: METOPROLOL TART 25 MG TABLET PO SCH (17:19)
[2023-10-09] MEDS ORDERED: METOPROLOL SUCC *XL* 25MG TAB (TopROL *XL*) PO SCH (18:00)
[2023-10-10] VITALS (28 sets, daily range): BP systolic 110–176; BP diastolic 62–94; TEMP 96.9–98.2; O2SAT 90–95
[2023-10-10 05:48] LABS: BASO % 0.2 % (0.0-1.0); EOS # 0.1 10^3/uL (0.0-0.5); EOS % 0.7 % (0.0-3.0); HEMATOCRIT 37.5 % (36.0-47.0); HEMOGLOBIN 12.5 g/dl (12.0-15.5); LYMPH # 1.5 10^3/uL (1.5-5.0); LYMPH % 12.3 % (24.0-44.0); MEAN CORPUSCULAR HEMOGLOBIN 32.1 pg (27.0-33.0); MEAN CORPUSCULAR HGB CONC 33.3 g/dl (32.0-36.5); MEAN CORPUSCULAR VOLUME 96.2 fl (80.0-96.0); MONO # 0.8 10^3/uL (0.0-0.8); NEUTROPHILS # 9.6 10^3/uL (1.5-8.5); NEUTROPHILS % 79.1 % (36.0-66.0); PLATELET COUNT, AUTOMATED 272 10^3/uL (150-450); WHITE BLOOD COUNT 12.1 10^3/uL (4.0-10.0)
[2023-10-10 06:09] LABS: BLOOD UREA NITROGEN 10 MG/DL (9-23); CALCIUM LEVEL 8.1 MG/DL (8.3-10.6); CARBON DIOXIDE LEVEL 37 MMOL/L (20-31); CHLORIDE LEVEL 101 MMOL/L (98-107); CREATININE FOR GFR 0.44 MG/DL (0.55-1.30); GLOMERULAR FILTRATION RATE > 60.0 (>45); GLUCOSE, FASTING 81 MG/DL (74-106); MAGNESIUM LEVEL 1.8 MG/DL (1.8-2.4); POTASSIUM SERUM 3.7 MMOL/L (3.5-5.1); SODIUM LEVEL 143 MMOL/L (136-145)
[2023-10-10 07:58] LABS: PHOSPHORUS LEVEL 2.3 MG/DL (2.4-5.1)
[2023-10-10 08:10] LABS: PROCALCITONIN 0.15 ng/ml
[2023-10-10] MEDS: FUROSEMIDE 40MG/4ML VIAL IV SCH (09:14)
[2023-10-10] MEDS: lisinopriL 5 MG TAB PO ONE (14:24)
[2023-10-10] MEDS: K-PHOS NEUTRAL 250MG TABLET (SOD.PHOSPHATE/POT.PHOSPHATE) PO ONE (17:08)
[2023-10-11] VITALS (21 sets, daily range): BP systolic 127–150; BP diastolic 60–80; TEMP 96.6–97.7; O2SAT 85–97
[2023-10-11] MEDS ORDERED: PILL CUTTER 1 EACH XX ONE (05:09)
[2023-10-11 06:07] LABS: HEMATOCRIT 39.5 % (36.0-47.0); HEMOGLOBIN 12.8 g/dl (12.0-15.5); MEAN CORPUSCULAR HEMOGLOBIN 31.6 pg (27.0-33.0); MEAN CORPUSCULAR HGB CONC 32.4 g/dl (32.0-36.5); MEAN CORPUSCULAR VOLUME 97.5 fl (80.0-96.0); PLATELET COUNT, AUTOMATED 293 10^3/uL (150-450); RED BLOOD COUNT 4.05 10^6/uL (4.00-5.40); WHITE BLOOD COUNT 13.1 10^3/uL (4.0-10.0)
[2023-10-11 06:32] LABS: ALBUMIN 2.3 G/DL (3.2-5.2); ALKALINE PHOSPHATASE 99 U/L (46-116); ALT/SGPT < 9 U/L (7.0-40); AST/SGOT 30 U/L (<34); BILIRUBIN,TOTAL 0.4 MG/DL (0.3-1.2); BLOOD UREA NITROGEN 14 MG/DL (9-23); CALCIUM LEVEL 8.4 MG/DL (8.3-10.6); CARBON DIOXIDE LEVEL 37 MMOL/L (20-31); CHLORIDE LEVEL 98 MMOL/L (98-107); CREATININE FOR GFR 0.44 MG/DL (0.55-1.30); GLOMERULAR FILTRATION RATE > 60.0 (>45); GLUCOSE, FASTING 73 MG/DL (74-106); POTASSIUM SERUM 3.6 MMOL/L (3.5-5.1); SODIUM LEVEL 142 MMOL/L (136-145); TOTAL PROTEIN 5.4 G/DL (5.7-8.2)
[2023-10-12] VITALS (30 sets, daily range): BP systolic 121–148; BP diastolic 61–78; TEMP 97–98.6; O2SAT 88–96
[2023-10-12 05:52] LABS: HEMOGLOBIN 12.9 g/dl (12.0-15.5); MEAN CORPUSCULAR HEMOGLOBIN 31.5 pg (27.0-33.0); MEAN CORPUSCULAR HGB CONC 32.3 g/dl (32.0-36.5); MEAN CORPUSCULAR VOLUME 97.8 fl (80.0-96.0); PLATELET COUNT, AUTOMATED 309 10^3/uL (150-450); RED BLOOD COUNT 4.09 10^6/uL (4.00-5.40); WHITE BLOOD COUNT 16.7 10^3/uL (4.0-10.0)
[2023-10-12 06:23] LABS: ALBUMIN 2.4 G/DL (3.2-5.2); ALKALINE PHOSPHATASE 95 U/L (46-116); ALT/SGPT < 9 U/L (7.0-40); AST/SGOT 38 U/L (<34); BILIRUBIN,TOTAL 0.4 MG/DL (0.3-1.2); BLOOD UREA NITROGEN 20 MG/DL (9-23); CALCIUM LEVEL 8.7 MG/DL (8.3-10.6); CARBON DIOXIDE LEVEL 38 MMOL/L (20-31); CHLORIDE LEVEL 99 MMOL/L (98-107); CREATININE FOR GFR 0.46 MG/DL (0.55-1.30); GLOMERULAR FILTRATION RATE > 60.0 (>45); GLUCOSE, FASTING 90 MG/DL (74-106); POTASSIUM SERUM 4.5 MMOL/L (3.5-5.1); SODIUM LEVEL 140 MMOL/L (136-145); TOTAL PROTEIN 5.5 G/DL (5.7-8.2)
[2023-10-12 07:17] LABS: PROCALCITONIN 0.12 ng/ml
[2023-10-12] MEDS: cefTRIAXone SOD 1 GM in D5W MINI-BAG PLUS 50 ML IV SCH (09:51)
[2023-10-12] MEDS: FUROSEMIDE 100MG/10ML VIAL IV SCH (09:53)
[2023-10-13] VITALS (18 sets, daily range): BP systolic 129–152; BP diastolic 67–75; TEMP 96.8–97.8; O2SAT 88–96
[2023-10-13 06:18] LABS: HEMATOCRIT 43.5 % (36.0-47.0); HEMOGLOBIN 14.3 g/dl (12.0-15.5); MEAN CORPUSCULAR HEMOGLOBIN 31.6 pg (27.0-33.0); MEAN CORPUSCULAR HGB CONC 32.9 g/dl (32.0-36.5); PLATELET COUNT, AUTOMATED 335 10^3/uL (150-450); RED BLOOD COUNT 4.53 10^6/uL (4.00-5.40); WHITE BLOOD COUNT 14.7 10^3/uL (4.0-10.0)
[2023-10-13 06:46] LABS: ALBUMIN 2.7 G/DL (3.2-5.2); ALKALINE PHOSPHATASE 104 U/L (46-116); ALT/SGPT 20 U/L (7.0-40); AST/SGOT 67 U/L (<34); BILIRUBIN,TOTAL 0.3 MG/DL (0.3-1.2); BLOOD UREA NITROGEN 26 MG/DL (9-23); CALCIUM LEVEL 9.9 MG/DL (8.3-10.6); CARBON DIOXIDE LEVEL 39 MMOL/L (20-31); CHLORIDE LEVEL 98 MMOL/L (98-107); CREATININE FOR GFR 0.47 MG/DL (0.55-1.30); GLOMERULAR FILTRATION RATE > 60.0 (>45); GLUCOSE, FASTING 98 MG/DL (74-106); POTASSIUM SERUM 4.8 MMOL/L (3.5-5.1); SODIUM LEVEL 140 MMOL/L (136-145); TOTAL PROTEIN 6.1 G/DL (5.7-8.2)
[2023-10-13] MEDS ORDERED: ELIQ5TAB PO (08:46)
[2023-10-13] MEDS ORDERED: LOPR1TAB6 PO (12:30)
[2023-10-13] MEDS ORDERED: SIME180C25 PO (12:30)
[2023-10-13] MEDS ORDERED: DULC10SU2 PR (12:30)
[2023-10-13] MEDS ORDERED: SENN-52 PO (12:30)
[2023-10-13] MEDS ORDERED: DIGO0.123 PO (12:30)
[2023-10-13] MEDS ORDERED: VENTAER INH (12:36)
[2023-10-13] MEDS ORDERED: METOPROLOL TART 50 MG TAB PO SCH (21:00)
== END 2023-10-13 13:55 | disposition home or self-care (01) | DRG 391 ==
LOC: M ED 15:06 → M ED INP 22:10 → M MS5PR 10-03 00:31 → M PCU 10-07 14:48
PROVIDERS: ADMIT Family Medicine; ATTEND Internal Medicine
PROC: 0DBN8ZZ Excision of Sigmoid Colon, Via Natural or Artificial Opening Endoscopic (ICD-10-PCS; principal; 2023-10-04 09:03)
DX: K52.9 Noninfective gastroenteritis and colitis, unspecified (principal); I50.33 Acute on chronic diastolic (congestive) heart failure; J18.9 Pneumonia, unspecified organism; K57.32 Diverticulitis of large intestine without perforation or abscess without bleeding; K56.7 Ileus, unspecified; J90 Pleural effusion, not elsewhere classified; J44.0 Chronic obstructive pulmonary disease with (acute) lower respiratory infection; K59.00 Constipation, unspecified; E55.9 Vitamin D deficiency, unspecified; I95.9 Hypotension, unspecified; E78.5 Hyperlipidemia, unspecified; R13.10 Dysphagia, unspecified; I48.0 Paroxysmal atrial fibrillation; I11.0 Hypertensive heart disease with heart failure; J45.909 Unspecified asthma, uncomplicated; M81.0 Age-related osteoporosis without current pathological fracture; F32.A Depression, unspecified; F41.9 Anxiety disorder, unspecified; G43.909 Migraine, unspecified, not intractable, without status migrainosus; Z98.82 Breast implant status; Z87.891 Personal history of nicotine dependence; Z79.899 Other long term (current) drug therapy; Z88.1 Allergy status to other antibiotic agents; Z88.5 Allergy status to narcotic agent; Z88.8 Allergy status to other drugs, medicaments and biological substances

== ENCOUNTER → 2023-11-10 | Outpatient (CLI) | payer OTHER ==
[~2023-11-10] MED LIST changes: +ALBU8.5H INH; +DIGO0.123 PO; +DULC10SU2 PR; +ELIQ5TAB PO; +EMGA120I SC; +FLUT1BLS8 INH; +LEXA1TAB2 PO; +LOPR1TAB6 PO; +NAPR-885 PO; +SENN-52 PO; +SIME180C25 PO; +TIZA10TA PO; +VENTAER INH
== END ==
LOC: M RAD 07:47
PROVIDERS: ATTEND Student in an Organized Health Care Education/Training Program
DX: R93.89 Abnormal findings on diagnostic imaging of other specified body structures (principal); J43.9 Emphysema, unspecified; I25.10 Atherosclerotic heart disease of native coronary artery without angina pectoris